=== PATIENT | male | born 1955 | race Caucasian/White ===

== ENCOUNTER → 2017-12-09 14:40 | Outpatient (CLI) | payer MEDICAID, SELFPAY ==
[2017-12-08 16:23] LABS: Albumin, Serum 3.9 g/dL (3.2-5.0); BUN 11 mg/dL (7-18); BUN/Creat Ratio 10.5 RATIO (10-20); Calcium,Total 8.8 mg/dL (8.5-10.1); Chloride 106 mmol/L (98-107); Creatinine, Serum 1.05 mg/dL (0.70-1.30); EST Glomerular Filtration Rate 76 mL/min (>60); Est Glom Filt Rate - Afr Amer 92 mL/min (>60); Glucose 91 mg/dL (74-106); Potassium 3.9 mmol/L (3.5-5.1); Sodium Level 138 mmol/L (136-145)
[2017-12-08 16:32] LABS: Protein, Urine (Random) < 6.0 mg/dL (<11.9)
== END ==
PROVIDERS: Family Provider Nurse Practitioner Family; PCP Nurse Practitioner Family; Visit Provider Internal Medicine Nephrology
DX: I12.9 Hypertensive chronic kidney disease with stage 1 through stage 4 chronic kidney disease, or unspecified chronic kidney disease (principal); N18.2 Chronic kidney disease, stage 2 (mild)
CPT/HCPCS: 36415; 80069; 82570; 84156

== ENCOUNTER → 2018-07-19 08:12 | Outpatient (CLI) | payer MEDICAID, SELFPAY ==
[2018-07-19 09:25] LABS: Absolute Lymphocyte Count 1.22 X10^3/ul (0.83-4.51); Absolute Neutrophil Count 5.3 X10^3/uL (2.0-7.7); Basophil# 0.06 X10^3/uL; Basophil% 0.8 % (0-1); Eosinophil# 0.15 X10^3/uL; Eosinophils% 2.1 % (0-5); Hematocrit 45.4 % (40-54); Hemoglobin 15.4 g/dl (13.0-16.5); Lymphocyte # 1.22 X10^3/ul (4.0); Lymphocyte % 16.7 % (19-41); Mean Corp Hgb Conc 33.9 g/gl (32-36); Mean Corpuscular Hgb 28.6 pg (27.0-32.0); Mean Corpuscular Volume 84.4 fL (80-94); Monocyte# 0.56 X10^3/uL; Monocyte% 7.7 % (0-10); Neutrophil # 5.27 X10^3/uL (2.7-7.7); Neutrophil % 72.3 % (47-70); Platelet Count 232 K/mm3 (150-450); RBC Distribution Width CV 13.3 % (11.6-14.6); Red Blood Count 5.38 M/mm3 (4.6-6.2); White Blood Count 7.3 K/mm3 (4.4-11.0)
[2018-07-19 09:27] LABS: POSITIVE COUNT NO; POSITIVE DIFFERENTIAL NO; POSITIVE MORPHOLOGY NO
[2018-07-19 09:46] LABS: AST(SGOT) 16 U/L (15-37); Alanine Aminotransfer ALT/SGPT 23 U/L (16-61); Albumin, Serum 3.8 g/dL (3.2-5.0); Alkaline Phosphatase 93 U/L (45-117); Anion Gap 11 (5-15); BUN 18 mg/dL (7-18); BUN/Creat Ratio 15.7 RATIO (10-20); Calcium,Total 8.9 mg/dL (8.5-10.1); Chloride 103 mmol/L (98-107); Cholesterol 141 mg/dL (200); Creatinine, Serum 1.15 mg/dL (0.70-1.30); EST Glomerular Filtration Rate 69 mL/min (>60); Est Glom Filt Rate - Afr Amer 83 mL/min (>60); Globulin 3.8 g/dL (2.2-4.2); Glucose 113 mg/dL (74-106); High Density Lipoprotein 30 mg/dL; PSA,Total - Annual Screen 1.38 ng/mL (0.00-4.00); Potassium 3.9 mmol/L (3.5-5.1); Protein, Total 7.6 g/dL (6.4-8.2); Sodium Level 139 mmol/L (136-145); Triglycerides 277 mg/dL; Very Low Density Lipoprotein 55 mg/dL (5-40)
[2018-07-19 09:48] LABS: Hemoglobin A1c 6.2 % (4.2-6.3)
--- OUTSIDE RECORDS SUMMARY | 2018-09-04 06:12 | XMS RPT_ITS ---
:1955 Author Organization OHIP Care Team Providers Name Role Phone Anne Kimball QUALITY SPECIALIST-C Attending Unavailable ANNE KIMBALL Primary Care Unavailable Anne Kimball QUALITY SPECIALIST-C Attending Unavailable Anne Kimball QUALITY SPECIALIST-C Referring Unavailable Anne Kimball QUALITY SPECIALIST-C Primary Care Unavailable Kalyn Cuevas Attending Unavailable ANNE KIMBALL Primary Care Unavailable PROBLEMS PROBLEMS DATE TYPE CONDITION / CODE ATTENDING STATUS SOURCE 07/19/2018 Unknown R73.01 - Impaired Ramsey, Active [place] fasting glucose / Anne Simmons QUALITY SPECIALIST-C [facility] R73.01(ICD-10) Hospital Repository 07/19/2018 Unknown I10 - Essential Ramsey, Active [place] (primary) Anne Simmons QUALITY SPECIALIST-Mikey [facility] hypertension / Hospital I10(ICD-10) Repository 07/19/2018 Unknown E78.5 - Jigar, Active [place] Hyperlipidemia, Anne Simmons QUALITY SPECIALIST-C [facility] unspecified / Hospital E78.5(ICD-10) Repository 07/19/2018 Unknown Z12.5 - Encounter Ramsey Active [place] for screening for Anne Simmons QUALITY SPECIALIST-Mikey [facility] malignant neoplasm Hospital of prostate / Repository Z12.5(ICD-10) 12/09/2017 Unknown N18.2 - Chronic Kalyn Cuevas Active [place] kidney disease, [facility] stage 2 (mild) / Hospital N18.2(ICD-10) Repository PROCEDURES PROCEDURES No Procedure Records FoundRESULTS RESULTS CBC W/DIFF, AUTOMATED Collected: 07/19/2018 Status: F Source: RODRIGO 8:19 AM [facility] REPOSITORY TYPE CODE TESTS RESULT OUT OF RANGE REFERENCE UNITS LAB L100.1000 4.4-11.0 K/mm3 Normal WBC 7.3 LAB L100.1200 4.6-6.2 M/mm3 Normal RBC 5.38 LAB L100.1300 13.0-16.5 g/dl Normal HGB 15.4 LAB L100.1400 40-54 % Normal HCT 45.4 LAB L100.1500 80-94 fL Normal MCV 84.4 LAB L100.1600 27.0-32.0 pg Normal MCH 28.6 LAB L100.1700 32-36 g/gl Normal MCHC 33.9 LAB L100.1810 11.6-14.6 % Normal RDW CV 13.3 LAB L100.1820 35.1-43.9 fl Normal RDW SD 41.0 LAB L100.1900 150-450 K/mm3 Normal PLT 232 LAB L100.2000 6.2-12.0 fl Normal MPV 10.0 LAB L100.2100 47-70 % High NEUT% 72.3 LAB L100.2200 19-41 % Low LY% 16.7 LAB L100.2300 0-10 % Normal MONO% 7.7 LAB L100.2400 0-5 % Normal EO% 2.1 LAB L100.2500 0-1 % Normal BASO% 0.8 LAB L100.2550 0.0-0.9 % Normal IM GRAN % 0.400 Result Comment: IG% - Immature Granulocytes (promyelocytes, myelocytes and metamyelocytes) > 1% indicates that a LEFT SHIFT is Present. LAB L100.2620 2.0-7.7 X10 3/uL Normal Absolute Neut 5.3 LAB L100.2720 0.83-4.51 X10 3/ul Normal Absolute Lymph 1.22 Performed By: #### L100.0100 #### [facility] [address] [place], [address] COMPREHENSIVE METABOLIC Collected: 07/19/2018 Status: F Source: RODRIGO CORDOVA 8:19 AM [facility] REPOSITORY TYPE CODE TESTS RESULT OUT OF RANGE REFERENCE UNITS LAB L501.0100 74-106 mg/dL High GLU 113 Result Comment: Fasting Glucose result from 100 to 125 mg/dL suggests IMPAIRED HOMEOSTASIS per A.D.A. criteria. Please note revised GLUCOSE reference range effective 2017. LAB L501.1000 7-18 mg/dL Normal BUN 18 LAB L501.1100 0.70-1.30 mg/dL Normal CREAT,SERUM 1.15 Result Comment: The validity of the calculated GFR AND GFRAA in patients over 70 years has not been determined. Clinical correlation is essential. LAB L501.1110 >60 mL/min Normal EST GFR 69 Result Comment: Non- GFR Calc LAB L501.1115 >60 mL/min Normal EST GFR - AA 83 Result Comment: GFR Calc LAB L501.1300 10-20 RATIO Normal BUN/CRE 15.7 LAB L501.1500 6.4-8.2 g/dL T Normal PROT 7.6 LAB L501.1800 3.2-5.0 g/dL Normal ALB 3.8 LAB L501.1950 2.2-4.2 g/dL Normal GLOB 3.8 LAB L501.2000 0.9-2.4 RATIO Normal A/G 1.0 LAB L501.2200 8.5-10.1 mg/dL CA Normal 8.9 LAB L501.4100 15-37 U/L Normal AST 16 LAB L501.4305 45-117 U/L Normal ALK P 93 LAB L501.4405 16-61 U/L Normal ALT 23 LAB L501.4600 0.20-1.00 mg/dL T Normal BILI 0.40 LAB L501.5300 136-145 mmol/L NA Normal 139 LAB L501.5600 3.5-5.1 mmol/L K Normal 3.9 LAB L501.5900 98-107 mmol/L CL Normal 103 LAB L501.6100 21.0-32.0 mmol/L Normal CO2 25.0 LAB L501.6200 5-15 Normal GAP 11 Performed By: #### L500.4050, L500.4100, L501.9910 #### [facility] [address] [place], [address] LIPID PROFILE Collected: 07/19/2018 Status: F Source: RODRIGO 8:19 AM [facility] REPOSITORY TYPE CODE TESTS RESULT OUT OF RANGE REFERENCE UNITS LAB L501.4900 200 mg/dL Normal CHOL 141 Result Comment: <200 mg/dL Desirable 200-240 mg/dL Borderline >240 mg/dL High Risk LAB L501.5000 mg/dL High TRIG 277 Result Comment: The drugs N-Acetylcysteine and Metamizole may falsely depress this assay. Serum Triglycerides Reference Interval Normal <150 mg/dL Borderline high 150 - 199 mg/dL High 200 - 499 mg/dL Very High > or = 500 mg/dL LAB L501.6400 mg/dL Low HDL 30 Result Comment: The drugs N-Acetylcysteine and Metamizole may falsely depress this assay. Reference Range HDL <40 mg/dL Low HDL Cholesterol HDL >or= 60 mg/dL High HDL Cholesterol LAB L501.6500 0-130 mg/dL Normal LDL 56 LAB L501.6600 5-40 mg/dL High VLDL 55 Performed By: #### L500.4050, L500.4100, L501.9910 #### [facility] [address] [place], [place], [address] PSA,TOTAL - ANNUAL Collected: 07/19/2018 Status: F Source: [place] SCREEN 8:19 AM [facility] REPOSITORY TYPE CODE TESTS RESULT OUT OF RANGE REFERENCE UNITS LAB L501.9910 0.00-4.00 ng/mL Normal PSA,TOT 1.38 SCREEN Result Comment: This test was performed using the TPSA assay method for the [employer] chemistry system. Values obtained with different assay methods cannot be used interchangably. When changing PSA assays in the course of monitoring a patient, additional sequential testing should be carried out to confirm baseline values. Performed By: #### L500.4050, L500.4100, L501.9910 #### [facility] [address] [place], [place], [address] HEMOGLOBIN A1C Collected: 07/19/2018 Status: F Source: RODRIGO 8:19 AM [facility] REPOSITORY TYPE CODE TESTS RESULT OUT OF RANGE REFERENCE UNITS LAB L501.9985 4.2-6.3 % Normal HGB A1C 6.2 Performed By: #### L501.9985 #### [facility] [address] [place], [place], [id number] RENAL PROFILE Collected: 12/08/2017 Status: F Source: RODRIGO 1:57 PM [facility] REPOSITORY TYPE CODE TESTS RESULT OUT OF RANGE REFERENCE UNITS LAB L501.0100 74-106 mg/dL Normal GLU 91 Result Comment: Please note revised GLUCOSE reference range effective 2017. LAB L501.1000 7-18 mg/dL Normal BUN 11 LAB L501.1100 0.70-1.30 mg/dL Normal CREAT,SERUM 1.05 Result Comment: The validity of the calculated GFR AND GFRAA in patients over 70 years has not been determined. Clinical correlation is essential. LAB L501.1110 >60 mL/min Normal EST GFR 76 Result Comment: Non- GFR Calc LAB L501.1115 >60 mL/min Normal EST GFR - AA 92 Result Comment: GFR Calc LAB L501.1300 10-20 RATIO Normal BUN/CRE 10.5 LAB L501.1800 3.2-5.0 g/dL Normal ALB 3.9 LAB L501.2200 8.5-10.1 mg/dL CA Normal 8.8 LAB L501.2300 2.5-4.9 mg/dL Normal PHOS 3.0 LAB L501.5300 136-145 mmol/L NA Normal 138 LAB L501.5600 3.5-5.1 mmol/L K Normal 3.9 LAB L501.5900 98-107 mmol/L CL Normal 106 LAB L501.6100 21.0-32.0 mmol/L Normal CO2 23.0 Performed By: #### L500.3600 #### [facility] [address] [place], [address] PROTEIN+CREATININE Collected: Status: F Source: RODRIGO WAGNER,URINE 12/08/2017 1:57 PM [facility] REPOSITORY TYPE CODE TESTS RESULT OUT OF RANGE REFERENCE UNITS LAB L501.1200 NO RANGE EST. mg/dL 14.10 Normal UR CREAT LAB L501.1930 <11.9 mg/dL < 6.0 Normal PROTEIN,UR. RAN. LAB L501.1940 0-200 mg/g CRE Test Normal not performed PROT:CRE RATIO Performed By: #### L501.0900 #### [facility] [address] [place], [address] ALLERGIES ALLERGIES No Allergies Records FoundENCOUNTERS ENCOUNTERS ADMIT/DISCHARGE ACCOUNT ADMITTING ENCOUNTER LOCATION SOURCE NUMBER CLASS 07/19/2018 [id number] Ambulatory [address] ing:LAB.FUTUR Repository E 12/09/2017 [id number] Ambulatory [facility] ing:LAB.FUTUR Repository E 10/07/2017 [id number] Ambulatory [address] ing:LAB.FUTUR Repository E PAYERS PAYERS ENCOUNTER GUARANTOR PAYER SUBSCRIBER SOURCE 07/19/2018 ANNE C Primary ANNE Leal [id number] N Insurance:[facility] [id number] PLANPolicy Number: Repository [id number]: 330 [id number] [id number] () Date:[id number] [address] [place] [address] [id number]: 07/19/2018 Secondary NOT GIVENUNK [place] Insurance:SELF PAY [facility] Number: Effective Repository Date:2018-01-04 12/09/2017 Anne Primary Anne Leal [id number] Insurance:[facility] [id number] PLANPolicy Number: Repository [id number]: 330 [id number] [id number] () Date:[id number] [address] [place] [address] 56790MG: 12/09/2017 Secondary NOT GIVENUNK [place] Insurance:SELF PAY [facility] Number: Effective Repository Date:2017-12-08 10/07/2017 Anne Primary Anne Leal [id number] Insurance:[facility] [id number] PLANPolicy Number: Repository [id number]: [phone] [id number] [phone] () Date:[id number] [address] [id number]: 10/07/2017 Secondary NOT GIVENUNK [place] Insurance:SELF PAY [facility] Number: Effective Repository Date:2017-10-07
== END ==
PROVIDERS: Family Provider Nurse Practitioner Family; PCP Nurse Practitioner Family; Referring Provider Nurse Practitioner Family; Visit Provider Nurse Practitioner Family
DX: I10 Essential (primary) hypertension (principal); R73.01 Impaired fasting glucose; E78.5 Hyperlipidemia, unspecified; Z12.5 Encounter for screening for malignant neoplasm of prostate
CPT/HCPCS: 36415; 80053; 80061; 83036; 84153; 85025; G0103

== ENCOUNTER → 2018-12-14 14:04 | Outpatient (CLI) | payer MEDICAID, SELFPAY ==
[2018-12-14 17:29] LABS: BUN 15 mg/dL (7-18); BUN/Creat Ratio 12.9 RATIO (10-20); Calcium,Total 8.5 mg/dL (8.5-10.1); Chloride 107 mmol/L (98-107); Creatinine, Serum 1.16 mg/dL (0.70-1.30); EST Glomerular Filtration Rate 68 mL/min (>60); Est Glom Filt Rate - Afr Amer 82 mL/min (>60); Glucose 95 mg/dL (74-106); Potassium 3.9 mmol/L (3.5-5.1); Sodium Level 138 mmol/L (136-145)
== END ==
PROVIDERS: Family Provider Nurse Practitioner Family; PCP Nurse Practitioner Family; Visit Provider Internal Medicine Nephrology
DX: N18.2 Chronic kidney disease, stage 2 (mild) (principal)
CPT/HCPCS: 36415; 80069

== ENCOUNTER → 2018-12-15 16:28 | Outpatient (CLI) | payer MEDICAID, SELFPAY | PROVIDERS: Family Provider Nurse Practitioner Family; PCP Nurse Practitioner Family; Visit Provider Internal Medicine Nephrology | DX: R69 Illness, unspecified (principal) ==

== ENCOUNTER → 2019-01-17 | Outpatient (CLI) | payer MEDICAID, SELFPAY ==
[2019-01-17 10:06] LABS: Absolute Lymphocyte Count 1.46 X10^3/ul (0.83-4.51); Absolute Neutrophil Count 4.5 X10^3/uL (2.0-7.7); Basophil# 0.05 X10^3/uL; Basophil% 0.7 % (0-1); Eosinophil# 0.25 X10^3/uL; Eosinophils% 3.7 % (0-5); Hematocrit 44.1 % (40-54); Hemoglobin 15.3 g/dl (13.0-16.5); Lymphocyte # 1.46 X10^3/ul (4.0); Lymphocyte % 21.4 % (19-41); Mean Corp Hgb Conc 34.7 g/gl (32-36); Mean Corpuscular Hgb 28.4 pg (27.0-32.0); Mean Corpuscular Volume 81.8 fL (80-94); Mean Platelet Vol. 10.5 fl (6.2-12.0); Monocyte# 0.51 X10^3/uL; Monocyte% 7.5 % (0-10); Neutrophil # 4.52 X10^3/uL (2.7-7.7); Neutrophil % 66.4 % (47-70); Platelet Count 233 K/mm3 (150-450); RBC Distribution Width CV 13.6 % (11.6-14.6); RBC Distribution Width SD 40.5 fl (35.1-43.9); Red Blood Count 5.39 M/mm3 (4.6-6.2); White Blood Count 6.8 K/mm3 (4.4-11.0)
[2019-01-17 10:08] LABS: POSITIVE COUNT NO; POSITIVE DIFFERENTIAL NO; POSITIVE MORPHOLOGY NO
[2019-01-17 10:49] LABS: AST(SGOT) 18 U/L (15-37); Alanine Aminotransfer ALT/SGPT 23 U/L (16-61); Albumin, Serum 3.6 g/dL (3.2-5.0); Alkaline Phosphatase 109 U/L (45-117); Anion Gap 4 (5-15); BUN 12 mg/dL (7-18); BUN/Creat Ratio 10.3 RATIO (10-20); Calcium,Total 8.6 mg/dL (8.5-10.1); Chloride 104 mmol/L (98-107); Cholesterol 143 mg/dL (200); Creatinine, Serum 1.16 mg/dL (0.70-1.30); EST Glomerular Filtration Rate 68 mL/min (>60); Est Glom Filt Rate - Afr Amer 82 mL/min (>60); Globulin 3.7 g/dL (2.2-4.2); Glucose 122 mg/dL (74-106); High Density Lipoprotein 32 mg/dL; Potassium 3.8 mmol/L (3.5-5.1); Protein, Total 7.3 g/dL (6.4-8.2); Sodium Level 136 mmol/L (136-145); Triglycerides 322 mg/dL; Very Low Density Lipoprotein 64 mg/dL (5-40)
== END | disposition home or self-care (01) ==
LOC: LAB 09:16
PROVIDERS: Family Provider Nurse Practitioner Family; PCP Nurse Practitioner Family; Referring Provider Nurse Practitioner Family; Visit Provider Nurse Practitioner Family
DX: I10 Essential (primary) hypertension (principal); E78.5 Hyperlipidemia, unspecified
CPT/HCPCS: 36415; 80053; 80061; 85025

== ENCOUNTER → 2019-07-18 10:53 | Outpatient (CLI) | payer MEDICAID, SELFPAY ==
[2019-07-18 11:26] LABS: Absolute Neutrophil Count 4.8 X10^3/uL (2.0-7.7); Basophil# 0.09 X10^3/uL; Basophil% 1.2 % (0-1); Eosinophil# 0.22 X10^3/uL; Hematocrit 44.6 % (40-54); Hemoglobin 15.1 g/dL (13.0-16.5); Lymphocyte % 21.5 % (19-41); Mean Corp Hgb Conc 33.9 g/dL (32-36); Mean Corpuscular Hgb 29.2 pg (27.0-32.0); Mean Corpuscular Volume 86.1 fL (80-94); Mean Platelet Vol. 9.3 fl (6.2-12.0); Monocyte# 0.63 X10^3/uL; Monocyte% 8.5 % (0-10); NRBC Flagged by Analyzer 0 % (0-5); Neutrophil # 4.84 X10^3/uL (2.7-7.7); Neutrophil % 65.1 % (47-70); Platelet Count 210 K/mm3 (150-450); RBC Distribution Width CV 13.2 % (11.6-14.6); RBC Distribution Width SD 40.8 fl (35.1-43.9); Red Blood Count 5.18 M/mm3 (4.6-6.2); White Blood Count 7.4 K/mm3 (4.4-11.0)
[2019-07-18 11:52] LABS: AST(SGOT) 20 U/L (15-37); Alanine Aminotransfer ALT/SGPT 27 U/L (16-61); Albumin, Serum 3.8 g/dL (3.2-5.0); Alkaline Phosphatase 101 U/L (45-117); Anion Gap 5 (5-15); BUN 15 mg/dL (7-18); BUN/Creat Ratio 11.3 RATIO (10-20); Calcium,Total 8.6 mg/dL (8.5-10.1); Chloride 103 mmol/L (98-107); Cholesterol 143 mg/dL (200); Creatinine, Serum 1.33 mg/dL (0.70-1.30); EST Glomerular Filtration Rate 58 mL/min (>60); Est Glom Filt Rate - Afr Amer 70 mL/min (>60); Globulin 3.9 g/dL (2.2-4.2); Glucose 152 mg/dL (74-106); High Density Lipoprotein 42 mg/dL; Protein, Total 7.7 g/dL (6.4-8.2); Sodium Level 137 mmol/L (136-145); Triglycerides 155 mg/dL; Very Low Density Lipoprotein 31 mg/dL (5-40)
== END ==
PROVIDERS: Family Provider Nurse Practitioner Family; PCP Nurse Practitioner Family; Referring Provider Nurse Practitioner Family; Visit Provider Nurse Practitioner Family
DX: E78.5 Hyperlipidemia, unspecified (principal); R73.01 Impaired fasting glucose; I10 Essential (primary) hypertension
CPT/HCPCS: 36415; 80053; 80061; 83036; 85025

== ENCOUNTER → 2019-12-19 | Outpatient (CLI) | payer MEDICAID, SELFPAY ==
[2019-12-19 12:47] LABS: Albumin, Serum 3.7 g/dL (3.2-5.0); BUN 16 mg/dL (7-18); BUN/Creat Ratio 13.2 RATIO (10-20); Calcium,Total 8.9 mg/dL (8.5-10.1); Chloride 103 mmol/L (98-107); Creatinine, Serum 1.21 mg/dL (0.70-1.30); EST Glomerular Filtration Rate 64 mL/min (>60); Est Glom Filt Rate - Afr Amer 78 mL/min (>60); Glucose 143 mg/dL (74-106); Phosphorus 2.9 mg/dL (2.5-4.9); Potassium 4.2 mmol/L (3.5-5.1); Sodium Level 139 mmol/L (136-145)
== END | disposition home or self-care (01) ==
LOC: POLAB3 11:24
PROVIDERS: Family Provider Nurse Practitioner Family; PCP Nurse Practitioner Family; Visit Provider Internal Medicine Nephrology
DX: N18.2 Chronic kidney disease, stage 2 (mild) (principal)
CPT/HCPCS: 36415; 80069

== ENCOUNTER → 2020-01-19 10:04 | Outpatient (CLI) | payer MEDICAID, SELFPAY ==
[2020-01-19 10:44] LABS: Hematocrit 44.1 % (40-54); Hemoglobin 14.4 g/dL (13.0-16.5); Mean Corp Hgb Conc 32.7 g/dL (32-36); Mean Corpuscular Hgb 28.2 pg (27.0-32.0); Mean Corpuscular Volume 86.5 fL (80-94); Mean Platelet Vol. 9.6 fl (6.2-12.0); Platelet Count 200 K/mm3 (150-450); RBC Distribution Width CV 13.5 % (11.6-14.6); RBC Distribution Width SD 42.4 fl (35.1-43.9); White Blood Count 7.1 K/mm3 (4.4-11.0)
[2020-01-19 11:12] LABS: ALB/GLOB Ratio 0.9 RATIO (0.9-2.4); AST(SGOT) 20 U/L (15-37); Alanine Aminotransfer ALT/SGPT 28 U/L (16-61); Albumin, Serum 3.6 g/dL (3.2-5.0); Alkaline Phosphatase 119 U/L (45-117); Anion Gap 7 (5-15); BUN 16 mg/dL (7-18); Calcium,Total 8.5 mg/dL (8.5-10.1); Chloride 102 mmol/L (98-107); Cholesterol 138 mg/dL (200); Creatinine, Serum 1.14 mg/dL (0.70-1.30); EST Glomerular Filtration Rate 69 mL/min (>60); Est Glom Filt Rate - Afr Amer 83 mL/min (>60); Globulin 3.9 g/dL (2.2-4.2); Glucose 122 mg/dL (74-106); High Density Lipoprotein 32 mg/dL; PSA,Total- Diagnostic 1.27 ng/mL (0.0-4.0); Potassium 3.8 mmol/L (3.5-5.1); Protein, Total 7.5 g/dL (6.4-8.2); Sodium Level 138 mmol/L (136-145); Triglycerides 221 mg/dL; Very Low Density Lipoprotein 44 mg/dL (5-40)
== END ==
PROVIDERS: PCP Nurse Practitioner Family; Referring Provider Nurse Practitioner Family; Visit Provider Nurse Practitioner Family
DX: I10 Essential (primary) hypertension (principal); N40.0 Benign prostatic hyperplasia without lower urinary tract symptoms; E78.5 Hyperlipidemia, unspecified
CPT/HCPCS: 36415; 80053; 80061; 84153; 85027

== ENCOUNTER → 2020-03-25 | Outpatient (CLI) | payer MEDICAID, SELFPAY | END | disposition home or self-care (01) | LOC: MTDU 17:03 | PROVIDERS: PCP Nurse Practitioner Family; Referring Provider Obstetrics & Gynecology; Visit Provider Obstetrics & Gynecology | DX: Z11.59 Encounter for screening for other viral diseases (principal) | CPT/HCPCS: 87635; 94799; U0003 ==

== ENCOUNTER → 2020-07-18 10:32 | Outpatient (CLI) | payer MEDICAID, SELFPAY ==
[2020-07-18 11:36] LABS: Hematocrit 44.2 % (40-54); Hemoglobin 14.5 g/dL (13.0-16.5); Mean Corp Hgb Conc 32.8 g/dL (32-36); Mean Corpuscular Hgb 27.5 pg (27.0-32.0); Mean Corpuscular Volume 83.9 fL (80-94); Mean Platelet Vol. 9.5 fl (6.2-12.0); Platelet Count 201 K/mm3 (150-450); RBC Distribution Width CV 12.9 % (11.6-14.6); RBC Distribution Width SD 39.7 fl (35.1-43.9); Red Blood Count 5.27 M/mm3 (4.6-6.2); White Blood Count 7.8 K/mm3 (4.4-11.0)
[2020-07-18 11:58] LABS: Hemoglobin A1c 6.1 % (3.8-5.6)
[2020-07-18 12:05] LABS: ALB/GLOB Ratio 0.9 RATIO (0.9-2.4); AST(SGOT) 21 U/L (15-37); Alanine Aminotransfer ALT/SGPT 32 U/L (16-61); Albumin, Serum 3.6 g/dL (3.2-5.0); Alkaline Phosphatase 118 U/L (45-117); Anion Gap 8 (5-15); BUN 15 mg/dL (7-18); BUN/Creat Ratio 12.8 RATIO (10-20); Calcium,Total 7.3 mg/dL (8.5-10.1); Chloride 99 mmol/L (98-107); Cholesterol 117 mg/dL (200); Creatinine, Serum 1.17 mg/dL (0.70-1.30); EST Glomerular Filtration Rate 67 mL/min (>60); Est Glom Filt Rate - Afr Amer 81 mL/min (>60); Glucose 111 mg/dL (74-106); High Density Lipoprotein 32 mg/dL; Potassium 3.4 mmol/L (3.5-5.1); Protein, Total 7.6 g/dL (6.4-8.2); Sodium Level 137 mmol/L (136-145); Triglycerides 151 mg/dL; Very Low Density Lipoprotein 30 mg/dL (5-40)
== END ==
PROVIDERS: PCP Nurse Practitioner Family; Referring Provider Nurse Practitioner Family; Visit Provider Nurse Practitioner Family
DX: I10 Essential (primary) hypertension (principal); E78.5 Hyperlipidemia, unspecified; I25.10 Atherosclerotic heart disease of native coronary artery without angina pectoris; N28.9 Disorder of kidney and ureter, unspecified; R73.01 Impaired fasting glucose
CPT/HCPCS: 36415; 80053; 80061; 83036; 85027

== ENCOUNTER → 2021-01-18 08:27 | Outpatient (CLI) | payer MEDICAID, SELFPAY ==
[2021-01-18 08:45] LABS: Hematocrit 44.8 % (40-54); Mean Corp Hgb Conc 33.5 g/dL (32-36); Mean Corpuscular Hgb 28.5 pg (27.0-32.0); Mean Corpuscular Volume 85.2 fL (80-94); Mean Platelet Vol. 9.2 fl (6.2-12.0); Platelet Count 226 K/mm3 (150-450); RBC Distribution Width CV 13.1 % (11.6-14.6); RBC Distribution Width SD 40.6 fl (35.1-43.9); Red Blood Count 5.26 M/mm3 (4.6-6.2); White Blood Count 7.8 K/mm3 (4.4-11.0)
[2021-01-18 09:45] LABS: AST(SGOT) 26 U/L (15-37); Alanine Aminotransfer ALT/SGPT 33 U/L (16-61); Albumin, Serum 3.7 g/dL (3.2-5.0); Alkaline Phosphatase 115 U/L (45-117); Anion Gap 6 (5-15); BUN 15 mg/dL (7-18); BUN/Creat Ratio 13.2 RATIO (10-20); Calcium,Total 7.9 mg/dL (8.5-10.1); Chloride 103 mmol/L (98-107); Cholesterol 142 mg/dL (200); Creatinine, Serum 1.14 mg/dL (0.70-1.30); EST Glomerular Filtration Rate 69 mL/min (>60); Est Glom Filt Rate - Afr Amer 83 mL/min (>60); Globulin 3.8 g/dL (2.2-4.2); Glucose 123 mg/dL (74-106); High Density Lipoprotein 25 mg/dL; PSA,Total - Annual Screen 1.54 ng/mL (0.00-4.00); Potassium 3.8 mmol/L (3.5-5.1); Protein, Total 7.5 g/dL (6.4-8.2); Sodium Level 138 mmol/L (136-145); Triglycerides 474 mg/dL
[2021-01-18 10:18] LABS: Hemoglobin A1c 5.9 % (3.8-5.6)
== END ==
PROVIDERS: PCP Nurse Practitioner Family; Referring Provider Nurse Practitioner Family; Visit Provider Nurse Practitioner Family
DX: E11.9 Type 2 diabetes mellitus without complications (principal); I10 Essential (primary) hypertension; E78.5 Hyperlipidemia, unspecified; Z12.5 Encounter for screening for malignant neoplasm of prostate
CPT/HCPCS: 36415; 80053; 80061; 83036; 84153; 85027; G0103

== ENCOUNTER → 2021-07-22 08:04 | Outpatient (CLI) | payer MEDICAID, SELFPAY ==
[2021-07-22 09:18] LABS: Hematocrit 44.7 % (40-54); Hemoglobin 14.8 g/dL (13.0-16.5); Mean Corp Hgb Conc 33.1 g/dL (32-36); Mean Corpuscular Hgb 27.8 pg (27.0-32.0); Mean Platelet Vol. 9.3 fl (6.2-12.0); Platelet Count 235 K/mm3 (150-450); RBC Distribution Width CV 13.1 % (11.6-14.6); RBC Distribution Width SD 39.4 fl (35.1-43.9); Red Blood Count 5.32 M/mm3 (4.6-6.2); White Blood Count 8.8 K/mm3 (4.4-11.0)
[2021-07-22 09:52] LABS: ALB/GLOB Ratio 0.9 RATIO (0.9-2.4); AST(SGOT) 24 U/L (15-37); Alanine Aminotransfer ALT/SGPT 37 U/L (16-61); Albumin, Serum 3.5 g/dL (3.2-5.0); Alkaline Phosphatase 109 U/L (45-117); Anion Gap 9 (5-15); BUN 12 mg/dL (7-18); BUN/Creat Ratio 11.8 RATIO (10-20); Calcium,Total 8.6 mg/dL (8.5-10.1); Chloride 102 mmol/L (98-107); Cholesterol 115 mg/dL (200); Creatinine, Serum 1.02 mg/dL (0.70-1.30); EST Glomerular Filtration Rate 78 mL/min (>60); Est Glom Filt Rate - Afr Amer 94 mL/min (>60); Glucose 133 mg/dL (74-106); High Density Lipoprotein 32 mg/dL; Protein, Total 7.5 g/dL (6.4-8.2); Sodium Level 138 mmol/L (136-145); Triglycerides 207 mg/dL; Very Low Density Lipoprotein 41 mg/dL (5-40)
[2021-07-22 10:30] LABS: Hemoglobin A1c 6.2 % (3.8-5.6)
== END ==
PROVIDERS: PCP Nurse Practitioner Family; Visit Provider Nurse Practitioner Family
DX: E11.9 Type 2 diabetes mellitus without complications (principal); E78.5 Hyperlipidemia, unspecified; I10 Essential (primary) hypertension; N28.9 Disorder of kidney and ureter, unspecified; N40.0 Benign prostatic hyperplasia without lower urinary tract symptoms
CPT/HCPCS: 36415; 80053; 80061; 83036; 85027

== ENCOUNTER → 2022-02-20 | Outpatient (CLI) | payer MEDICARE, MEDICAID, SELFPAY ==
[2022-02-20 12:36] LABS: Hematocrit 43.4 % (40-54); Hemoglobin 14.7 g/dL (13.0-16.5); Mean Corp Hgb Conc 33.9 g/dL (32-36); Mean Corpuscular Hgb 28.9 pg (27.0-32.0); Mean Corpuscular Volume 85.3 fL (80-94); Mean Platelet Vol. 9.8 fl (6.2-12.0); Platelet Count 219 K/mm3 (150-450); RBC Distribution Width CV 13.2 % (11.6-14.6); RBC Distribution Width SD 40.8 fl (35.1-43.9); Red Blood Count 5.09 M/mm3 (4.6-6.2); White Blood Count 7.6 K/mm3 (4.4-11.0)
[2022-02-20 13:19] LABS: Hemoglobin A1c 5.9 % (3.8-5.6)
[2022-02-20 13:26] LABS: ALB/GLOB Ratio 1.1 RATIO (0.9-2.4); AST(SGOT) 22 U/L (15-37); Alanine Aminotransfer ALT/SGPT 25 U/L (16-61); Albumin, Serum 3.7 g/dL (3.2-5.0); Alkaline Phosphatase 92 U/L (45-117); Anion Gap 7 (5-15); BUN 18 mg/dL (7-18); BUN/Creat Ratio 16.5 RATIO (10-20); Calcium,Total 8.8 mg/dL (8.5-10.1); Chloride 104 mmol/L (98-107); Cholesterol 119 mg/dL (200); Creatinine, Serum 1.09 mg/dL (0.70-1.30); EST Glomerular Filtration Rate 72 mL/min (>60); Est Glom Filt Rate - Afr Amer 87 mL/min (>60); Globulin 3.5 g/dL (2.2-4.2); Glucose 115 mg/dL (74-106); High Density Lipoprotein 36 mg/dL; PSA,Total- Diagnostic 1.43 ng/mL (0.0-4.0); Protein, Total 7.2 g/dL (6.4-8.2); Sodium Level 137 mmol/L (136-145); Triglycerides 183 mg/dL; Very Low Density Lipoprotein 37 mg/dL (5-40)
== END | disposition home or self-care (01) ==
LOC: LAB 11:41
PROVIDERS: PCP Nurse Practitioner Family; Visit Provider Nurse Practitioner Family
DX: I25.10 Atherosclerotic heart disease of native coronary artery without angina pectoris (principal); E11.9 Type 2 diabetes mellitus without complications; N40.0 Benign prostatic hyperplasia without lower urinary tract symptoms; E78.5 Hyperlipidemia, unspecified; N28.9 Disorder of kidney and ureter, unspecified
CPT/HCPCS: 36415; 80053; 80061; 83036; 84153; 85027

== ENCOUNTER 2022-06-01 06:06 | Inpatient (IN) | payer MEDICARE, MEDICAID, SELFPAY ==
[2022-06-01] VITALS (18 sets, daily range): BP systolic 129–229; BP diastolic 69–104; PULSE 57–108; RESP 12–30; TEMP 36.3–36.9; O2SAT 88–97; BMI 33.8; BMI 33.7
--- NOTE | 2022-06-01 06:11 | EKG12_ITS ---
Test Reason : SOB Blood Pressure : / mmHG Vent. Rate : 087 BPM Atrial Rate : 000 BPM P-R Int : 000 ms QRS Dur : 108 ms QT Int : 400 ms P-R-T Axes : 000 020 268 degrees QTc Int : 481 ms Atrial fibrillation Inferior infarct , age undetermined Abnormal ECG Confirmed by BRANDY MENDEZ, LEIDY ([id number]), market editor JOVANNY LEE ([id number]) on 06/03/2022 8:30:48 AM Referred By: Confirmed By:LEIDY NAVA MD
--- NOTE | 2022-06-01 06:12 | EDS_ITS ---
HPI History of Present Illness Chief Complaint: Shortness of Breath Informant: patient Onset/Context/Timing Onset: Hours (3) Context: sudden, onset, activity on onset and sleep Timing: Continuous Quality: Positive for - (Short of breath) Current Severity: Moderate Worsened by: Lying flat Relieved by: Oxygen (Given by EMS, not on home oxygen) Associated Symptoms Negative for cough Chest Pain: Positive for None Narrative Narrative: Patient states he went to bed feeling fine and woke up 2 or 3 in the morning short of breath, it continued so he called EMS. Never had this before. Has had no chest discomfort or recent cough/illness. Vaccinated to some degree against COVID and has had no exposures to anyone with COVID that he knows of recently. No recent leg swelling. No recent travel out of the area or history of blood clots that he knows of. Per EMS, blood pressure over 200, 91% on room air, they put him on 3 L nasal cannula which brought him up to 96%. Patient is an active smoker. [facility] Medical History (Updated 06/01/22 @ 06:[address] Brian Turner MD) GERD (gastroesophageal reflux disease) Hypertension Pulmonary edema Shortness of breath STEMI (ST elevation myocardial infarction) Home Medications amlodipine 5 mg tablet 5 mg PO DAILY 06/01/22 [History Last Taken Unknown] atorvastatin 40 mg tablet 40 mg PO DAILY 06/01/22 [History Last Taken Unknown] ezetimibe 10 mg tablet 10 mg PO DAILY 06/01/22 [History Last Taken Unknown] losartan 100 mg tablet 100 mg PO DAILY 06/01/22 [History Last Taken Unknown] metoprolol succinate 100 mg tablet,extended release 24 hr 100 mg PO DAILY 06/01/22 [History Last Taken Unknown] pantoprazole 40 mg tablet,delayed release 40 mg PO DAILY 06/01/22 [History Last Taken Unknown] Allergy/AdvReac Type Severity Reaction Status Date / Time No Known Allergies Allergy Verified 06/01/22 06:17 Surgical History Hx of CABG Social History Smoking Status: Current every day smoker tobacco type: cigarettes ROS ROS ED Constitutional Constitutional ED: Denies chills or fever(s) Eyes Eyes: Denies change in vision or diplopia ENT ENT ED: Denies rhinorrhea or sore throat Cardiovascular Cardiovascular: Reports orthopnea; Denies chest pain, palpitations or racing heartbeat Respiratory/Chest Respiratory/Chest: Reports dyspnea and orthopnea; Denies cough Gastrointestinal Gastrointestinal: Denies abdominal pain, diarrhea, nausea or vomiting Genitourinary Genitourinary ED: Denies dysuria or hematuria Musculoskeletal Musculoskeletal: Denies back pain or neck pain Integumentary Denies abscess or rash Neurologic Neurologic: Denies headache(s), paresthesias or weakness Psychiatric Psychiatric: Denies anxiety or suicidal thoughts EXAM Physical Exam Const Vital Signs: 06/01/22 06:07 06/01/22 06:12 06/01/22 06:30 Temperature 98.5 F Temperature Source Temporal Pulse Rate 108 H 75 Respiratory Rate 30 H 20 H Respiratory Effort Short of Breath Respiratory Depth Deep Respiratory Pattern Tachypnea Normal Blood Pressure 229/104 H Blood Pressure Mean 145 Pulse Ox 88 Oxygen Delivery Method Room Air Room Air Fraction of Inspired Oxygen (FIO2) 06/01/22 06:38 06/01/22 06:28 06/01/22 06:36 Temperature Temperature Source Pulse Rate 80 65 Respiratory Rate 13 25 H Respiratory Effort Respiratory Depth Respiratory Pattern Normal Blood Pressure 160/87 H Blood Pressure Mean 111 Pulse Ox 94 91 95 Oxygen Delivery Method Room Air Room Air Fraction of Inspired Oxygen (FIO2) 60 Positive well nourished, well developed and obese General Appearance ED: well developed and NAD Nutritional Appearance: obese HEENT Reports moist mucous membranes normocephalic and atraumatic Eyes PERRL and EOMs intact bilaterally Neck full ROM, supple and no JVD Resp Resp Narrative: Tachypneic, mild resp distress. Diffusely diminished breath sounds, sounds tight, slight expiratory wheezes especially at bases. Cardio no murmurs Cardio Narrative: Irregularly irregular Rate: tachycardic GI non-tender and non-distended Auscultation: normoactive bowel sounds Palpation: soft Back/Spine no CVA tenderness General Back: other FROM Extremity normal to inspection and no calf tenderness General Extremety ED: Negative for edema, pulses abnormal or tenderness General Extremity: Negative for edema or pulses abnormal Neuro oriented x3, CN's II-XII intact bilaterally and no sensory deficits noted Sensorium / Orientation: awake and alert Motor Exam: strength 5/5 throughout Skin no rashes or lesions noted and no wounds MDM MDM MDM Narrative Medical decision making narrative: Patient was 88% on room air, so we placed him back on 3 L nasal cannula to keep him into the 90s. Still in mild respiratory distress after albuterol so we placed him on BiPAP which helped and he tolerated it. EKG does appear to show atrial fibrillation. Chest x-ray 1 view on my interpretation appears to show CHF/pulmonary edema with cardiomegaly. No prior echo available in the system. The last time he was here was about 9 years ago and he was intubated in the ED for pulmonary edema. His blood pressure over 220/100s on multiple measurements, he was given hydralazine this brought it down to 160/87 which helped his b reathing as well. Plan is for admission and further treatment and evaluation. Breathing much more comfortably on BiPAP. Lab Data Attestation: I reviewed the patient's lab results. Labs: Laboratory Results - last 24 hr 06/01/22 06/01/22 06:13 06:13 WBC 8.1 RBC 5.61 Hgb 16.0 Hct 48.1 MCV 85.7 MCH 28.5 MCHC 33.3 RDW Std Deviation 40.4 RDW Coeff of Jorge 13.2 Plt Count 226 MPV 9.6 Immature Gran % (Auto) 0.400 Neut % (Auto) 58.7 Lymph % (Auto) 28.9 [place] % (Auto) 8.3 Eos % (Auto) 3.0 Baso % (Auto) 0.7 Absolute Neuts (auto) 4.8 Absolute Lymphs (auto) 2.35 Nucleated RBC % 0 Sodium 141 Potassium 3.7 Chloride 107 Carbon Dioxide 27.0 Anion Gap 7 BUN 18 Creatinine 1.29 Estim Creat Clear Calc 64.52 Est GFR (MDRD) Af Amer 72 Est GFR (MDRD) Non-Af 59 L BUN/Creatinine Ratio 14.0 Glucose 147 H Calcium 7.7 L Troponin I High Sens 21 Rhythm Strip Rhythm Strip: A-fib Rate: 90 Ectopy: None EKG Initial EKG: Attestation: I personally reviewed and interpreted this EKG as follows: Interpretation: No Acute Injury Pattern, Atrial Fibrillation and Non- Specific ST Changes Prior EKG tracings: not available for review Critical Care Time Critical Care Time: Yes Critical care time (excluding procedures): 30-74 minutes (33 min), Including time spent:, Discussing w/Patient &/or Family/Produce Team Lead, Discussing w/Consultants, Arranging Admission or Transfer and Performing Direct Patient Care at Bedside Discharge Plan Dx/Rx/DC Orders Clinical Impression: Acute respiratory failure with hypoxia, Acute CHF, Hypertensive urgency, Atrial fibrillation Disposition Disposition: Acute Care [facility]
[2022-06-01] MEDS: Labetalol (Prefilled) 20 MG/4 ML IV (06:20)
[2022-06-01 06:28] LABS: Absolute Lymphocyte Count 2.35 X10^3/uL (0.83-4.51); Absolute Neutrophil Count 4.8 X10^3/uL (2.0-7.7); Basophil# 0.06 X10^3/uL; Basophil% 0.7 % (0-1); Eosinophil# 0.24 X10^3/uL; Hematocrit 48.1 % (40-54); Lymphocyte # 2.35 X10^3/ul (0.83-4.51); Lymphocyte % 28.9 % (19-41); Mean Corp Hgb Conc 33.3 g/dL (32-36); Mean Corpuscular Hgb 28.5 pg (27.0-32.0); Mean Corpuscular Volume 85.7 fL (80-94); Mean Platelet Vol. 9.6 fl (6.2-12.0); Monocyte# 0.67 X10^3/uL; Monocyte% 8.3 % (0-10); NRBC Flagged by Analyzer 0 % (0-5); Neutrophil # 4.77 X10^3/uL (2.7-7.7); Neutrophil % 58.7 % (47-70); Platelet Count 226 K/mm3 (150-450); RBC Distribution Width CV 13.2 % (11.6-14.6); RBC Distribution Width SD 40.4 fl (35.1-43.9); Red Blood Count 5.61 M/mm3 (4.6-6.2); White Blood Count 8.1 K/mm3 (4.4-11.0)
[2022-06-01] MEDS: Albuterol 2.5 MG/3 ML VIAL.NEB. INHALATION (06:30)
--- NOTE | 2022-06-01 06:45 | RAD_ITS ---
INDICATION: dyspnea EXAMINATION/TECHNIQUE: X-RAY - XR Chest 1 View: 2 images AP chest COMPARISON: None. FINDINGS: LINES/DEVICES: None. LUNGS: No consolidation or effusion. Minimal bilateral perihilar interstitial thickening. No pneumothorax. MEDIASTINUM AND CARDIOVASCULAR STRUCTURES: Borderline cardiomegaly.. BONES AND SOFT TISSUES: Unremarkable. Sternotomy wires are midline and intact. RAD/Chest 1 View (Portable) IMPRESSION: No radiographic evidence of consolidative pneumonia. Borderline cardiomegaly with mild interstitial edema. Electronically Signed: Bry Ladd MD at 7:15 EDT ,
[2022-06-01 06:47] LABS: Anion Gap 7 (5-15); BUN 18 mg/dL (7-18); Calcium,Total 7.7 mg/dL (8.5-10.1); Chloride 107 mmol/L (98-107); Creatinine, Serum 1.29 mg/dL (0.70-1.30); EST Glomerular Filtration Rate 59 mL/min (>60); Est Glom Filt Rate - Afr Amer 72 mL/min (>60); Estimated Creatinine Clearance 64.52 ml/min; Glucose 147 mg/dL (74-106); Potassium 3.7 mmol/L (3.5-5.1); Sodium Level 141 mmol/L (136-145); Troponin-I HS 21 pg/mL (3.0-78.0)
[2022-06-01] MEDS: Furosemide 40 MG/4 ML Vial IV ×3 (07:06→21:22)
--- NOTE | 2022-06-01 07:20 | PCM.HP.STD ---
HPI - General General Date of Admission: 06/01/22 Date of Service: 06/01/22 Chief Complaint: Shortness of breath -A few hours prior to admission HPI Narrative ANNE CATALAN, is a 66 M who presents With the above. Patient has past medical history of CAD status post CABG. he does not follow any certified registered nurse practitioner. He is an active smoker. He admits to taking all his medications. He denies missing any medications. He stated that he was in his usual state of health when he woke up this morning feeling short of breath. He called the EMS, he was found to be in A. fib. His oxygen saturation was 91% on room air, improved to 96% with 3 L. In the emergency room,Patient blood pressure 229/104, heart rate 108, respiratory rate is 30, temperature 98.5 F, oxygen saturation 88% on room air. He was found to be in respiratory distress, started on BiPAP. WBC count is 8.1, hemoglobin 16.2, platelet count 226. Sodium is 141, potassium 3.7, chloride 107, bicarbonate 27, BUN 18, creatinine 1.29, glucose 147, calcium 7.7, troponin 21. EKG shows atrial fibrillation. Chest x-ray showed borderline cardiomegaly with mild interstitial edema. [facility] Medical History GERD (gastroesophageal reflux disease) Hypertension Pulmonary edema Shortness of breath STEMI (ST elevation myocardial infarction) Home Medications amlodipine 5 mg tablet 5 mg PO DAILY 06/01/22 [History Last Taken Unknown] atorvastatin 40 mg tablet 40 mg PO DAILY 06/01/22 [History Last Taken Unknown] ezetimibe 10 mg tablet 10 mg PO DAILY 06/01/22 [History Last Taken Unknown] losartan 100 mg tablet 100 mg PO DAILY 06/01/22 [History Last Taken Unknown] metoprolol succinate 100 mg tablet,extended release 24 hr 100 mg PO DAILY 06/01/22 [History Last Taken Unknown] pantoprazole 40 mg tablet,delayed release 40 mg PO DAILY 06/01/22 [History Last Taken Unknown] Allergy/AdvReac Type Severity Reaction Status Date / Time No Known Allergies Allergy Verified 06/01/22 06:17 Family History adopted adopted Surgical History Hx of CABG Social History Smoking Status: Current every day smoker tobacco type: cigarettes alcohol intake: current substance use type: does not use Vital Signs Vital Signs Vital Signs: 06/01/22 06:07 06/01/22 06:12 06/01/22 06:30 Temperature 98.5 F Temperature Source Temporal Pulse Rate 108 H 75 Respiratory Rate 30 H 20 H Respiratory Effort Short of Breath Respiratory Depth Deep Respiratory Pattern Tachypnea Normal Blood Pressure 229/104 H Blood Pressure Mean 145 Pulse Ox 88 Oxygen Delivery Method Room Air Room Air Fraction of Inspired Oxygen (FIO2) 06/01/22 06:38 06/01/22 06:28 06/01/22 06:36 Temperature Temperature Source Pulse Rate 80 65 Respiratory Rate 13 25 H Respiratory Effort Respiratory Depth Respiratory Pattern Normal Blood Pressure 160/87 H Blood Pressure Mean 111 Pulse Ox 94 91 95 Oxygen Delivery Method Room Air Room Air Fraction of Inspired Oxygen (FIO2) 60 06/01/22 07:10 Temperature Temperature Source Pulse Rate 83 Respiratory Rate 15 Respiratory Effort Respiratory Depth Respiratory Pattern Blood Pressure 166/86 H Blood Pressure Mean 112 Pulse Ox 97 Oxygen Delivery Method Bi-pap Fraction of Inspired Oxygen (FIO2) Weight Weight: 116.3 kg Body Mass Index (BMI) 33.8 Physical Exam Narrative Physical exam: General: Alert, Oriented x3, Cooperative, on BiPAP HEENT: Atraumatic Oral: Moist Mucosa Neck: Supple Lungs: Diminished to auscultation Cardiovascular: HS I+II, regular, no murmurs Abdomen: Bowel Sounds Present, Soft, Non Tender Extremities: Bilateral leg edema +1 Skin: No rashes, No breakdown Neurological: Grossly intact Psych/Mental Status: Appropriate Results Lab / Micro Data Result Diagrams: 06/01/22 06:13 06/01/22 06:13 Labs: Laboratory Results - last 24 hr 06/01/22 06:13: WBC 8.1, RBC 5.61, Hgb 16.0, Hct 48.1, MCV 85.7, MCH 28.5, MCHC 33.3, RDW Std Deviation 40.4, RDW Coeff of Jorge 13.2, Plt Count 226, MPV 9.6, Immature Gran % (Auto) 0.400, Neut % (Auto) 58.7, Lymph % (Auto) 28.9, [place] % (Auto) 8.3, Eos % (Auto) 3.0, Baso % (Auto) 0.7, Absolute Neuts (auto) 4.8, Absolute Lymphs (auto) 2.35, Nucleated RBC % 0 06/01/22 06:13: Sodium 141, Potassium 3.7, Chloride 107, Carbon Dioxide 27.0, Anion Gap 7, BUN 18, Creatinine 1.29, Estim Creat Clear Calc 64.52, Est GFR (MDRD) Af Amer 72, Est GFR (MDRD) Non-Af 59 L, BUN/Creatinine Ratio 14.0, Glucose 147 H, Calcium 7.7 L, Troponin I High Sens 21 Micro: Microbiology 06/01/22 06:17 Nasal Secretion SARS-CoV-2 & FLU Antigen (Rapid) - Final Rhythm Strip Rhythm Strip: A-fib Rate: 90 Ectopy: None Radiology Impression Chest X-Ray 06/01/22 06:45 IMPRESSION: No radiographic evidence of consolidative pneumonia. Borderline cardiomegaly with mild interstitial edema. Electronically Signed: Bry Ladd MD at 7:15 EDT , Assessment & Plan Assessment/Plan (1) Acute respiratory failure with hypoxia: (2) Acute CHF: (3) Atrial fibrillation: (4) Hypertensive emergency: PLAN: Plan 1. Acute hypoxic respiratory failure secondary to acute flash pulmonary edema Patient is currently on BiPAP. Respiratory status appears to have improved with Lasix, aerosol treatment and labetalol We will continue to wean off oxygen for more than 94% 2. Hypertensive emergency, in a patient with past medical history of hypertension Patient admits to taking all his blood pressure medication Blood pressure improved with labetalol Will resume all medications, hydralazine as needed 3. Atrial fibrillation, newly diagnosed, CHADS-VASC2 score is 3, rate controlled now Continue on metoprolol, start on Lovenox SC BID 4. Nicotine dependence, advised to quit, will continue on replacement 5. Hyperlipidemia, continue statin 6. DVT prophylaxis?therapeutic Lovenox SC I discussed and explained in details the various types of CODE STATUS-full code, DNR CCA, DNR CC. Patient chose full code and wants everything done including intubation and mechanical ventilator. Time spent discussing CODE STATUS 16 minutes Charges/Coding Visit Charges Inpatient E&M: 73802 Init Hosp L3 Procedures Hospitalists Procedures: 33991 Advncd Care Plan 30 Min
--- NOTE | 2022-06-01 07:22 | ECHOCS_ITS ---
Reason For Study: Dyspnea/SOB Procedure This was a 2D Doppler, Color Flow transthoracic echocardiogram. The study was technically difficult. Contrast injection was performed. Exam performed portable in patient room. Left Ventricle Normal LV size. Moderate concentric left ventricular hypertrophy. Left ventricular systolic function is normal. The estimated ejection fraction is 55 %. No regional wall motion abnormalities noted. Right Ventricle Normal RV size. Normal systolic function. Atria Normal left atrium. 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 measures1.8 by 2.4cm. Normal right atrium. Mitral Valve Normal mitral valve. Tricuspid Valve Normal tricuspid valve. Aortic Valve Trisinus/trileaflet aortic valve. Pulmonic Valve Normal pulmonic valve. Great Vessels Normal aortic root. The pulmonary artery is normal size. Normal inferior vena cava. Pericardium/Pleural No pericardial effusion. Medication Diluted definity 2ml given slow IV push to enhance endocardial definition. MMode/2D Measurements & Calculations LVIDd: 4.2 cm IVSd: 1.5 cm LA dimension: 4.7 cm LVIDs: 3.4 cm LVPWd: 1.3 cm RVDd: 3.7 cm FS: 19.7 % Doppler Measurements & Calculations MV E max keli: 91.1 cm/sec Ao V2 max: 136.7 cm/sec LV V1 max: 135.9 cm/sec Ao max P.5 mmHg LV V1 max P.4 mmHg PA V2 max: 136.0 cm/sec PA V2 mean: 94.1 cm/sec ECHO/Echo Complete W/ Contrast Interpretation Summary Normal LV size. Left ventricular systolic function is normal. The estimated ejection fraction is 55 %. Normal left atrium. 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 measures1.8 by 2.4cm Moderate concentric left ventricular hypertrophy. Contrast injection was performed. Ordering Physician: Marifer Barton Performed By: Dorian Underwood RCS
[2022-06-01 07:51] LABS: AST(SGOT) 25 U/L (15-37); Alanine Aminotransfer ALT/SGPT 34 U/L (16-61); Albumin, Serum 3.6 g/dL (3.2-5.0); Alkaline Phosphatase 113 U/L (45-117); Bilirubin, Direct 0.07 mg/dL (0.00-0.30); Globulin 4.3 g/dL (2.2-4.2); Protein, Total 7.9 g/dL (6.4-8.2)
[2022-06-01 07:57] LABS: BNP,B-Type NATRIURETIC PEPTIDE 156.4 pg/mL (0-100)
[2022-06-01 08:50] LABS: Hemoglobin A1c 6.2 % (3.8-5.6)
[2022-06-01 10:00] LABS: Troponin-I HS 31 pg/mL (3.0-78.0)
[2022-06-01] MEDS: Metoprolol(XL)Succ 100 MG Tablet PO (10:38)
[2022-06-01] MEDS: Pantoprazole Sodium 40 MG Tablet PO (10:38)
[2022-06-01] MEDS: Ezetimibe 10 MG Tablet PO (10:38)
[2022-06-01] MEDS: amLODIPine 5 MG Tablet PO (10:38)
[2022-06-01] MEDS: Losartan Potassium 100 MG Tablet PO (10:38)
[2022-06-01] MEDS: Atorvastatin Calcium 40 MG Tablet PO (10:38)
[2022-06-01] MEDS: Enoxaparin 120 MG/0.8 ML Syringe SC ×2 (10:41→18:27)
--- NOTE | 2022-06-01 11:15 | CASEMGMT ---
RN JONNA Face to Face with patient for initial transition planning/care coordination assessment. RN CM introduced self and role at [facility]. Patient lying in bed, alert and oriented. Patient willing to participate in assessment and is able to answer all questions appropriately. Care providers, pharmacy, and demographics verified. Patient wishes to discharge home, denies need for home health at this time. Patient states he has no further needs or concerns at this time. CM to follow for discharge planning needs that may arise. PCP: Jigar Specialists: none Preferred Pharmacy: [facility] Prescription Benefit: yes Living Will/HPOA: none LNOK: daughter, granddaughter Living Arrangements: Patient lives with daughter and granddaughter in a first floor apartment with no steps to enter. Patient states he is independent at home. Transportation: self, daughter DME/HHC: Patient denies DME in the home. No previous HHC or SNF. Disposition Plan: Patient to discharge home with family support and follow-up plans in place. Gunjan AKINS, RN, CM
[2022-06-01] MEDS: Magnesium Sulfate 4gm/100mL 4 GM/100 ML IV.SOLN. IV (11:55)
[2022-06-01 12:58] LABS: Troponin-I HS 36 pg/mL (3.0-78.0)
[2022-06-01 14:22] LABS: Thyroid Stim Hormone (TSH) 2.07 uIU/mL (0.358-3.74)
--- NOTE | 2022-06-01 16:18 | CON.PCM.CA_ITS ---
Assessment & Plan Assessment/Plan (1) Atrial fibrillation: PLAN: He does have evidence of atrial fibrillation which appears to be fairly new onset. The exact duration is unclear at this time. However due to his age and hypertension I would recommend that his [id number] score is elevated enough he needs to be anticoagulated long-term. * Ventricular response rate is controlled on account of his beta-blockade. This will be continued. (2) Acute CHF: PLAN: He did present with acute shortness of breath likely secondary to heart failure with preserved ejection fraction. He was noted to be markedly hypertens lee as well as in atrial fibrillation and both of these could have contributed to his symptomatology. We will continue to aggressively diurese him We will continue beta-oksana Continue ARB (3) Hypertensive emergency: PLAN: He did present with hypertensive emergency. My recommendation is to continue the current medical therapy and get his blood pressure under better control. (4) Myxoma: PLAN: He has been noted to have a mass in the left atrium and I would recommend obtaining a transesophageal echocardiogram to further clarify the above. Brenna crawley on the findings further recommendations will be made. Thank you for allowing me to participate in the care of your patient. Please don't hesitate to call if any issues arise. (5) CAD (coronary artery disease) of artery bypass graft: PLAN: He does have a history of coronary artery disease status post coronary bypass surgery remotely. He has not had any recent follow-up. After his echocardiogram has been reevaluated he may be a candidate for a pharmacologic stress test to exclude progression of the coronary artery disease. Thank you for allowing me to participate in the care of your patient. Please don't hesitate to call if any issues arise. HPI Consult Data Date of Consult: 06/01/22 HPI Narrative HPI Narrative: ANNE CATALAN, is a 66 M who presents with shortness of which he says was fairly acute. He had been in his usual state of health. He does have a history of hypertension, coronary artery bypass surgery over 8 years ago and not following with any youth manager. He did not experience any chest discomfort but thinks he had mild palpitations. He presented to the emergency room and was noted to be in atrial fibrillation with a rapid ventricular response rate and short of breath requiring intravenous Lasix as well as BiPAP. Cardiac enzymes were obtained and an echocardiogram was performed today which demonstrated a mass in his left atrium suggestive of a left atrial myxoma. He was diuresed and currently feels quite well. Cardiology was called for further evaluation due to the echocardiographic findings. [facility] Medical History GERD (gastroesophageal reflux disease) Hypertension Pulmonary edema Shortness of breath STEMI (ST elevation myocardial infarction) Home Medications amlodipine 5 mg tablet 5 mg PO DAILY blood pressure 06/01/22 [History Last Taken 05/31/22] aspirin 325 mg tablet 325 mg PO DAILY heart health 06/01/22 [History Last Taken 05/31/22] atorvastatin 40 mg tablet 40 mg PO DAILY cholesterol 06/01/22 [History Last Taken 05/31/22] ezetimibe 10 mg tablet 10 mg PO DAILY cholesterol 06/01/22 [History Last Taken 05/31/22] losartan 100 mg tablet 100 mg PO DAILY blood pressure 06/01/22 [History Last Taken 05/31/22] metoprolol succinate 100 mg tablet,extended release 24 hr 100 mg PO DAILY blood pressure 06/01/22 [History Last Taken 05/31/22] pantoprazole 40 mg tablet,delayed release 40 mg PO DAILY GERD 06/01/22 [History Last Taken 05/31/22] Allergy/AdvReac Type Severity Reaction Status Date / Time No Known Allergies Allergy Verified 06/01/22 06:17 Family History adopted Surgical History Hx of CABG Social History (Updated 06/01/22 @ 10:31 by Monica Hilario) household members: children housing: apartment Smoking Status: Current every day smoker tobacco type: cigarettes alcohol intake: current substance use type: does not use ROS Constitutional Constitutional: Denies fever(s) or weight loss Eyes Eyes: Reports systems reviewed and no addt'l complaints, except as documented ENT HEENT: Reports systems reviewed and no addt'l complaints, except as documented Cardiovascular Cardiovascular: Reports dyspnea at rest, dyspnea on exertion and palpitations; Denies chest pain at rest, chest pain with activity, edema or paroxysmal nocturnal dyspnea Respiratory/Chest Respiratory/Chest: Reports shortness of breath at rest and shortness of breath with exertion; Denies dyspnea on exertion or productive cough Gastrointestinal Gastrointestinal: Denies change in bowel habits, nausea, vomiting or weight changes Genitourinary Genitourinary: Denies difficulty urinating Musculoskeletal Musculoskeletal: Denies joint stiffness or muscle weakness Integumentary Integumentary: Denies lesions Neurologic Neurologic: Denies dizziness or syncope Psychiatric Psychiatric: Denies anxiety Endocrine Endocrinology: Denies excessive sweating or fatigue Hematologic/Lymphatic Hematologic/Lymphatic: Denies anemia Allergic/Immunologic Allergic/Immunologic: Denies seasonal rhinorrhea Physical Exam Const alert, oriented x3 and no apparent distress General Appearance: cooperative HEENT hearing grossly normal bilaterally Head and Scalp: atraumatic Eyes EOMs intact bilaterally Neck General: normal visual inspection Chest inspection of chest normal and palpation of chest normal Resp normal respiratory effort Auscultation: clear to auscultation bilaterally Cardio regular rhythm, S1 normal heart sound and S2 normal heart sound Jugular Venous Distention: JVD Rhythm: abnormal rhythm GI normal to inspection, nondistended, normoactive bowel sounds Extremity normal capillary refill and no pedal edema Peripheral Pulses: Yes pulses 2+ throughout and femoral pulses present Skin no rashes or lesions noted Neuro oriented x3 and CN's II-XII intact bilaterally Psych Appearance: grossly normal and appropriate Risk Stratification Risk Stratification Applicable: No Objective Data Vital Signs: Vital Signs Temp Pulse Resp BP Pulse Ox O2 Del Method FiO2 98 F 60 18 141/88 H 95 Room Air 40 06/01/22 14:05 06/01/22 15:01 06/01/22 14:05 06/01/22 14:05 06/01/22 13:41 06/01/22 13:44 06/01/22 08:25 Oxygen Delivery Method Room Air Weight: 256 lb Body Mass Index (BMI) 33.7 Intake & Output: Intake and Output for Last 24 Hours 05/30/22 05/31/22 06/01/22 23:59 23:59 23:59 Intake Total 340 / 340 Output Total 1675 / 1675 Balance -1335 / -1335 Lab / Micro Data Result Diagrams: 06/01/22 06:13 06/01/22 06:13 Labs: Laboratory Results - last 24 hr 06/01/22 06:13: WBC 8.1, RBC 5.61, Hgb 16.0, Hct 48.1, MCV 85.7, MCH 28.5, MCHC 33.3, RDW Std Deviation 40.4, RDW Coeff of Jorge 13.2, Plt Count 226, MPV 9.6, Immature Gran % (Auto) 0.400, Neut % (Auto) 58.7, Lymph % (Auto) 28.9, [place] % (Auto) 8.3, Eos % (Auto) 3.0, Baso % (Auto) 0.7, Absolute Neuts (auto) 4.8, Absolute Lymphs (auto) 2.35, Nucleated RBC % 0 06/01/22 06:13: Sodium 141, Potassium 3.7, Chloride 107, Carbon Dioxide 27.0, Anion Gap 7, BUN 18, Creatinine 1.29, Estim Creat Clear Calc 64.52, Est GFR ( RD) Af Amer 72, Est GFR (MDRD) Non-Af 59 L, BUN/Creatinine Ratio 14.0, Glucose 147 H, Calcium 7.7 L, Troponin I High Sens 21 06/01/22 06:13: B-Natriuretic Peptide 156.4 H 06/01/22 06:21: Magnesium 1.0 L 06/01/22 06:21: Total Bilirubin 0.90, Direct Bilirubin 0.07, AST 25, ALT 34, Alkaline Phosphatase 113, Total Protein 7.9, Albumin 3.6, Globulin 4.3 H 06/01/22 07:45: Hemoglobin A1c 6.2 H 06/01/22 09:28: Troponin I High Sens 31 06/01/22 11:45: Troponin I High Sens 36 06/01/22 11:45: TSH 2.07 Micro: Microbiology 06/01/22 06:17 Nasal Secretion SARS-CoV-2 & FLU Antigen (Rapid) - Final Rhythm Strip Rhythm Strip: A-fib Rate: 90 Ectopy: None Cardiology Labs/Tests 06/01/22 06:13: WBC 8.1, RBC 5.61, Hgb 16.0, Hct 48.1, MCV 85.7, MCH 28.5, MCHC 33.3, Plt Count 226, MPV 9.6, Immature Gran % (Auto) 0.400, Neut % (Auto) 58.7, Lymph % (Auto) 28.9, [place] % (Auto) 8.3, Eos % (Auto) 3.0, Baso % (Auto) 0.7, Absolute Neuts (auto) 4.8, Nucleated RBC % 0 06/01/22 06:13: Sodium 141, Potassium 3.7, Chloride 107, Carbon Dioxide 27.0, Anion Gap 7, BUN 18, Creatinine 1.29, Est GFR (MDRD) Af Amer 72, Est GFR (MDRD) Non-Af 59 L, BUN/Creatinine Ratio 14.0, Glucose 147 H, Calcium 7.7 L 06/01/22 06:13: B-Natriuretic Peptide 156.4 H 06/01/22 06:21: Magnesium 1.0 L 06/01/22 06:21: Total Bilirubin 0.90, Direct Bilirubin 0.07 06/01/22 07:45: Hemoglobin A1c 6.2 H Rhythm: EKG: ECHO: Stress Test: Cardiac Cath: PCI: CT Surgery: Holter monitor: EPS: PPM: CXR: Chest CT Scan: Radiography Diagnostic Testing: Radiology Impression Chest X-Ray 06/01/22 06:45 IMPRESSION: No radiographic evidence of consolidative pneumonia. Borderline cardiomegaly with mild interstitial edema. Electronically Signed: Bry Ladd MD at 7:15 EDT , Echocardiogram 06/01/22 07:22 Interpretation Summary Normal LV size. Left ventricular systolic function is normal. The estimated ejection fraction is 55 %. Normal left atrium. 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 measures1.8 by 2.4cm Moderate concentric left ventricular hypertrophy. Contrast injection was performed. Ordering Physician: Marifer Barton Performed By: Dorian Underwood RCS
[2022-06-01] MEDS: 0.9% Saline Lock 10 ML Syringe IV (21:22)
[2022-06-02] VITALS (20 sets, daily range): BP systolic 118–149; BP diastolic 62–80; PULSE 35–75; RESP 14–18; TEMP 36.4–36.9; O2SAT 90–99
[2022-06-02] MEDS: 0.9% Saline Lock 10 ML Syringe IV ×2 (05:39→22:30)
[2022-06-02] MEDS: Enoxaparin 120 MG/0.8 ML Syringe SC (05:39)
[2022-06-02] MEDS: Furosemide 40 MG/4 ML Vial IV (05:39)
[2022-06-02 06:25] LABS: Absolute Lymphocyte Count 2.14 X10^3/uL (0.83-4.51); Basophil# 0.06 X10^3/uL; Basophil% 0.7 % (0-1); Eosinophil# 0.22 X10^3/uL; Eosinophils% 2.7 % (0-5); Hematocrit 42.7 % (40-54); Hemoglobin 14.8 g/dL (13.0-16.5); Lymphocyte # 2.14 X10^3/ul (0.83-4.51); Lymphocyte % 26.5 % (19-41); Mean Corp Hgb Conc 34.7 g/dL (32-36); Mean Corpuscular Volume 83.6 fL (80-94); Mean Platelet Vol. 10.1 fl (6.2-12.0); Monocyte# 0.62 X10^3/uL; Monocyte% 7.7 % (0-10); NRBC Flagged by Analyzer 0 % (0-5); Neutrophil # 5.03 X10^3/uL (2.7-7.7); Neutrophil % 62.2 % (47-70); Platelet Count 200 K/mm3 (150-450); RBC Distribution Width CV 13.2 % (11.6-14.6); Red Blood Count 5.11 M/mm3 (4.6-6.2); White Blood Count 8.1 K/mm3 (4.4-11.0)
[2022-06-02] MEDS: 0.9% Normal Saline 1,000 ML 15 ML IV (06:32)
[2022-06-02 06:58] LABS: AST(SGOT) 22 U/L (15-37); Alanine Aminotransfer ALT/SGPT 22 U/L (16-61); Albumin, Serum 3.4 g/dL (3.2-5.0); Alkaline Phosphatase 108 U/L (45-117); Anion Gap 8 (5-15); BUN 14 mg/dL (7-18); BUN/Creat Ratio 11.7 RATIO (10-20); Calcium,Total 7.5 mg/dL (8.5-10.1); Chloride 103 mmol/L (98-107); Cholesterol 99 mg/dL (200); EST Glomerular Filtration Rate 65 mL/min (>60); Est Glom Filt Rate - Afr Amer 78 mL/min (>60); Estimated Creatinine Clearance 69.36 ml/min; Globulin 3.4 g/dL (2.2-4.2); Glucose 117 mg/dL (74-106); High Density Lipoprotein 29 mg/dL; Potassium 3.3 mmol/L (3.5-5.1); Protein, Total 6.8 g/dL (6.4-8.2); Sodium Level 137 mmol/L (136-145); Triglycerides 178 mg/dL; Very Low Density Lipoprotein 36 mg/dL (5-40)
--- NOTE | 2022-06-02 08:00 | ECHOTEE_ITS ---
Reason For Study: R/O LA Myxoma Medication ZAHRAA probe 6VT-D (SN [id number]) passed without difficulty. No complications were noted. Cetacaine Topical [place] given X3 orally. Versed 3 mg given slow IVP. Fentanyl 50 mcg given slow IVP. Performed a rapid injection of agitated mix of 9 cc saline and 1cc air to assess for atrial septal defect. Left Ventricle Normal LV size. Left ventricular systolic function is normal. The estimated ejection fraction is 60 %. No regional wall motion abnormalities noted. Right Ventricle Normal RV size. Normal systolic function. Atria The base and atrioventricular junction appear to be thickened but no mass is noted suggestive of myxoma. Bubble contrast study negative for right to left interatrial shunt. Normal left atrium. No thrombus is detected in the left atrial appendage. Normal right atrium. Mitral Valve Normal mitral valve. Tricuspid Valve Normal tricuspid valve. Aortic Valve Normal aortic valve. Trisinus/trileaflet aortic valve. Pulmonic Valve Normal pulmonic valve. Vessels Normal aortic root. Pericardium No pericardial effusion. ECHO/Echo Transesophageal (ZAHRAA) Interpretation Summary Normal LV size. Left ventricular systolic function is normal. The estimated ejection fraction is 60 %. The base and atrioventricular junction appear to be thickened but no mass is no keila suggestive of myxoma. Bubble contrast study negative for right to left interatrial shunt. No thrombus is detected in the left atrial appendage. The previous structure identified in the right atrium was likely from acoustic shadowing. No myxoma is identified. Ordering Physician: Matthew Stein Referring Physician: Yevgeniy Kimball Performed By: Lynnette Stevens RDCS
--- NOTE | 2022-06-02 10:18 | PCM.PN.HOSP ---
Subjective Subjective Follow-up on acute hypoxic respiratory failure/acute flash pulmonary edema/newly diagnosed A. fib: Patient was seen and examined. Denied any new complaints. 2D echo done yesterday showed EF of 55%, probable myxoma of the left atrium that measures 1.8 x 2.4 cm. Patient underwent ZAHRAA and cardiac cath today. Objective Data Objective Data Vital Signs: Vital Signs Temp Pulse Resp BP Pulse Ox O2 Del Method FiO2 97.5 F L 66 16 129/78 H 96 Room Air 40 06/02/22 08:43 06/02/22 09:25 06/02/22 09:25 06/02/22 09:25 06/02/22 09:25 06/02/22 09:25 06/02/22 02:32 Oxygen Delivery Method Room Air Weight: 113.5 kg Body Mass Index (BMI) 33.7 Intake & Output: Intake and Output for Last 24 Hours 05/31/22 06/01/22 06/02/22 23:59 23:59 23:59 Intake Total 820 / 820 Output Total 2850 / 3600 1000 / 1000 Balance -2030 / -2780 -1000 / -1000 Lab / Micro Data Result Diagrams: 06/02/22 05:28 06/02/22 05:28 Labs: Laboratory Results - last 24 hr 06/01/22 11:45: Troponin I High Sens 36 06/01/22 11:45: TSH 2.07 06/02/22 05:28: WBC 8.1, RBC 5.11, Hgb 14.8, Hct 42.7, MCV 83.6, MCH 29.0, MCHC 34.7, RDW Std Deviation 40.0, RDW Coeff of Jorge 13.2, Plt Count 200, MPV 10.1, Immature Gran % (Auto) 0.200, Neut % (Auto) 62.2, Lymph % (Auto) 26.5, [place] % (Auto) 7.7, Eos % (Auto) 2.7, Baso % (Auto) 0.7, Absolute Neuts (auto) 5.0, Absolute Lymphs (auto) 2.14, Nucleated RBC % 0 06/02/22 05:28: Sodium 137, Potassium 3.3 L, Chloride 103, Carbon Dioxide 26.0, Anion Gap 8, BUN 14, Creatinine 1.20, Estim Creat Clear Calc 69.36, Est GFR (MDRD) Af Amer 78, Est GFR (MDRD) Non-Af 65, BUN/Creatinine Ratio 11.7, Glucose 117 H, Calcium 7.5 L, Total Bilirubin 0.90, AST 22, ALT 22, Alkaline Phosphatase 108, Total Protein 6.8, Albumin 3.4, Globulin 3.4, Albumin/Globulin Ratio 1.0, Triglycerides 178, Cholesterol 99, LDL Cholesterol 34, VLDL Cholesterol 36, HDL Cholesterol 29 L Micro: Microbiology 06/01/22 06:17 Nasal Secretion SARS-CoV-2 & FLU Antigen (Rapid) - Final Radiography Diagnostic Testing: Radiology Impression Echocardiogram 06/01/22 07:22 Interpretation Summary Normal LV size. Left ventricular systolic function is normal. The estimated ejection fraction is 55 %. Normal left atrium. 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 measures1.8 by 2.4cm Moderate concentric left ventricular hypertrophy. Contrast injection was performed. Ordering Physician: Marifer Barton Performed By: Dorian Underwood RCS Rhythm Strip Rhythm Strip: A-fib Rate: 90 Ectopy: None Physical Exam Narrative Physical exam: General: Alert, Oriented x3, Cooperative, comfortable on room air HEENT: Atraumatic Oral: Moist Mucosa Neck: Supple Lungs: Diminished to auscultation Cardiovascular: HS I+II, regular, no murmurs Abdomen: Bowel Sounds Present, Soft, Non Tender Extremities: Bilateral leg edema, trace Skin: No rashes, No breakdown Neurological: Grossly intact Psych/Mental Status: Appropriate Assessment & Plan Assessment/Plan (1) Acute respiratory failure with hypoxia: (2) Acute CHF: (3) Atrial fibrillation: (4) Hypertensive emergency: PLAN: Plan 1. Acute hypoxic respiratory failure secondary to acute flash pulmonary edema, resolved Patient is currently on room air 2. Hypertensive emergency, resolved, Blood pressures currently controlled Continue on losartan, metoprolol, amlodipine Continue to monitor 3. Atrial fibrillation, newly diagnosed, CHADS-VASC2 score is 3, rate controlled now Continue on metoprolol, therapeutic Lovenox We will start Eliquis at discharge 4. Nicotine dependence, continue replacement 5.Hyperlipidemia, continue statin 6. Acute flash pulmonary edema, probable acute heart failure with preserved EF, EF 55% Cardiac cath pending; cardiology following Decrease Lasix to 20 mg p.o. twice daily 7. Abnormal echo, findings suggestive of left atrial myxoma Status post ZAHRAA that was unremarkable Cardiology following 8. DVT prophylaxis?therapeutic Lovenox SC Charges/Coding Visit Charges Inpatient E&M: 03845 Subs Hosp L2
[2022-06-02] MEDS: Aspirin 325 MG Tablet PO (10:49)
[2022-06-02] MEDS: Potassium Chloride Oral Tablet 20 MEQ 40 MEQ PO (10:49)
[2022-06-02] MEDS: Losartan Potassium 100 MG Tablet PO (10:49)
[2022-06-02] MEDS: amLODIPine 10 MG Tablet PO (10:50)
--- NOTE | 2022-06-02 12:21 | NURSING ---
Report called to Neris LEVY clinical lab technologist
--- NOTE | 2022-06-02 15:03 | PN.CARD_ITS ---
Subjective Subjective Seen and evaluated. Underwent ZAHRAA as well as cardiac catheterization today. Objective Data Vital Signs: Vital Signs Temp Pulse Resp BP Pulse Ox O2 Del Method FiO2 97.5 F L 51 L 16 127/77 H 94 Room Air 40 06/02/22 08:43 06/02/22 14:45 06/02/22 14:45 06/02/22 14:45 06/02/22 14:45 06/02/22 14:45 06/02/22 02:32 Oxygen Delivery Method Room Air Weight: 250 lb 3.594 oz Body Mass Index (BMI) 33.7 Intake & Output: Intake and Output for Last 24 Hours 05/31/22 06/01/22 06/02/22 23:59 23:59 23:59 Intake Total 820 / 820 35.75 / 35.75 Output Total 2850 / 3600 1000 / 1000 Balance -2030 / -2780 -964.25 / -964.25 Lab / Micro Data Result Diagrams: 06/02/22 05:28 06/02/22 05:28 Labs: Laboratory Results - last 24 hr 06/02/22 05:28: WBC 8.1, RBC 5.11, Hgb 14.8, Hct 42.7, MCV 83.6, MCH 29.0, MCHC 34.7, RDW Std Deviation 40.0, RDW Coeff of Jorge 13.2, Plt Count 200, MPV 10.1, Immature Gran % (Auto) 0.200, Neut % (Auto) 62.2, Lymph % (Auto) 26.5, [place] % (Auto) 7.7, Eos % (Auto) 2.7, Baso % (Auto) 0.7, Absolute Neuts (auto) 5.0, Absolute Lymphs (auto) 2.14, Nucleated RBC % 0 06/02/22 05:28: Sodium 137, Potassium 3.3 L, Chloride 103, Carbon Dioxide 26.0, Anion Gap 8, BUN 14, Creatinine 1.20, Estim Creat Clear Calc 69.36, Est GFR (MDRD) Af Amer 78, Est GFR (MDRD) Non-Af 65, BUN/Creatinine Ratio 11.7, Glucose 117 H, Calcium 7.5 L, Total Bilirubin 0.90, AST 22, ALT 22, Alkaline Phosphatase 108, Total Protein 6.8, Albumin 3.4, Globulin 3.4, Albumin/Globulin Ratio 1.0, Triglycerides 178, Cholesterol 99, LDL Cholesterol 34, VLDL Cholesterol 36, HDL Cholesterol 29 L Rhythm Strip Rhythm Strip: A-fib Rate: 90 Ectopy: None Cardiology Labs/Tests 06/02/22 05:28: WBC 8.1, RBC 5.11, Hgb 14.8, Hct 42.7, MCV 83.6, MCH 29.0, MCHC 34.7, Plt Count 200, MPV 10.1, Immature Gran % (Auto) 0.200, Neut % (Auto) 62.2, Lymph % (Auto) 26.5, [place] % (Auto) 7.7, Eos % (Auto) 2.7, Baso % (Auto) 0.7, Absolute Neuts (auto) 5.0, Nucleated RBC % 0 06/02/22 05:28: Sodium 137, Potassium 3.3 L, Chloride 103, Carbon Dioxide 26.0, Anion Gap 8, BUN 14, Creatinine 1.20, Est GFR (MDRD) Af Amer 78, Est GFR (MDRD) Non-Af 65, BUN/Creatinine Ratio 11.7, Glucose 117 H, Calcium 7.5 L, Total Biliru bin 0.90, Triglycerides 178, Cholesterol 99, LDL Cholesterol 34, VLDL Cholesterol 36, HDL Cholesterol 29 L Rhythm: EKG: ECHO: Stress Test: Cardiac Cath: PCI: CT Surgery: Holter monitor: EPS: PPM: CXR: Chest CT Scan: Physical Exam Const alert, oriented x3 and no apparent distress General Appearance: cooperative HEENT hearing grossly normal bilaterally Head and Scalp: atraumatic Eyes EOMs intact bilaterally Neck General: normal visual inspection Chest inspection of chest normal and palpation of chest normal Resp normal respiratory effort Auscultation: clear to auscultation bilaterally Cardio regular rhythm, S1 normal heart sound and S2 normal heart sound Jugular Venous Distention: JVD Rhythm: abnormal rhythm GI normal to inspection, nondistended, normoactive bowel sounds Extremity normal capillary refill and no pedal edema Peripheral Pulses: Yes pulses 2+ throughout and femoral pulses present Skin no rashes or lesions noted Neuro oriented x3 and CN's II-XII intact bilaterally Psych Appearance: grossly normal and appropriate Assessment & Plan Assessment/Plan (1) Atrial fibrillation: PLAN: He does have evidence of atrial fibrillation which appears to be fairly new onset. The exact duration is unclear at this time. However due to his age and hypertension I would recommend that his [id number] score is elevated enough he needs to be anticoagulated long-term. * Ventricular response rate is controlled on account of his beta-blockade. This will be continued. (2) Acute CHF: PLAN: He did present with acute shortness of breath likely secondary to heart failure with preserved ejection fraction. He was noted to be markedly hypertensive as well as in atrial fibrillation and both of these could have contributed to his symptomatology. We will continue to aggressively diurese him We will continue beta-oksana Continue ARB (3) Hypertensive emergency: PLAN: He did present with hypertensive emergency. My recommendation is to continue the current medical therapy and get his blood pressure under better control. (4) Myxoma: PLAN: He has been noted to have a mass in the left atrium and he had a ZAHRAA performed this morning which did not confirm any such mass. 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 No further therapy is recommended. Thank you for allowing me to participate in the care of your patient. Please don't hesitate to call if any issues arise. (5) CAD (coronary artery disease) of artery bypass graft: PLAN: He does have a history of coronary artery disease status post coronary bypass surgery remotely. He underwent cardiac catheterization today which demonstrated the following: Normal left main coronary artery. Left anterior descending artery with severe disease noted in the midsegment. Left circumflex artery with severe proximal disease. Right coronary artery with moderate diffuse disease. Saphenous vein graft to right coronary artery which is patent. Saphenous vein graft to the diagonal vessel which is patent. Saphenous vein graft to the left circumflex artery which is patent. No other grafts were noted. Preserved left ventricular systolic function. Next based on the above angiogr aphic findings would recommend medical therapy. Thank you for allowing me to participate in the care of your patient. Please don't hesitate to call if any issues arise.
[2022-06-02] MEDS: Atorvastatin Calcium 40 MG Tablet PO (16:07)
[2022-06-02] MEDS: Pantoprazole Sodium 40 MG Tablet PO (16:07)
[2022-06-02] MEDS: Ezetimibe 10 MG Tablet PO (16:07)
--- NOTE | 2022-06-02 16:54 | CL.D_ITS ---
Patient Name: ANNE CATALAN Study Date: 06/02/2022 Performing: Matthew Stein MD Ht: 73 inches 185.42 cm : 1955 Wt: 250.6 lbs 113.5 kg Age: 66 Gender: male BSA: 2.37 PROCEDURE(S) PERFORMED DC04-(18468)LHC/COR/CABG DC11-(11921)AO ROOT ANGIO WITH HEART CATH CLINICAL PROFILE AND INDICATIONS Indications: Suspected CAD Heart Failure: NYHA Class: 2, Newly Diagnosed: Yes, Heart Failure Type: Diastolic Stress/Imaging Stress/Image Study Performed: No CAD Presentations: Other: htn CONCLUSIONS Severe [place] coronary disease with patent saphenous vein bypass grafts noted to the obtuse marginal branch and posterior descending artery. RECOMMENDATIONS Medical therapy DESCRIPTION OF PROCEDURE The patient arrived to the procedure lab. The risks and benefits of the procedure as well as a full description of our services here and current unavailability of surgical backup were fully explained to the patient and/or their significant other prior to the catheterization. The Timeout was completed, verifying the correct patient and procedure. The patient's procedural site was prepped and draped in the usual fashion. Local anesthetic was given subcutaneously to right groin region with Lidocaine 2%. Using a modified Seldinger technique, arterial access was obtained via the right femoral artery, a 5Fr sheath was inserted. Left Coronary Artery selective angiography was performed in multiple views using a 5 Fr. JL4 catheter. Right Coronary Artery selective angiography was then performed in multiple views using a 5 Fr. 3DRC (Moose) catheter. Saphenous Vein graft to the OM 1 selective angiography was performed in multiple views using a 5 Fr. 3DRC (Moose) catheter. Saphenous Vein graft to the OM 2 selective angiography was performed in multiple views using a 5 Fr. 3DRC (Moose) catheter. Saphenous Vein graft to the RPDA selective angiography was performed in multiple views using a 5 Fr. 3DRC (Moose) catheter. Ascending (root) aorta selective angiography was then performed in single view. Ascending (root) aorta selective angiography was then performed in single view.The arterial sheath was pulled and manual compression applied until hemostasis is achieved. CORONARY ANGIOGRAPHY DOMINANCE: Right Dominant LEFT HEART ASSESSMENT Left Ventricular Ejection Fraction: by LV Gram 60 % Normal LV wall motion Normal Left Ventricular systolic function LEFT MAIN: Angiographically normal LEFT ANTERIOR DESCENDING ARTERY: MID LAD: Diffusely diseased up to 90 % CIRCUMFLEX ARTERY: PROX CIRC: Severe disease noted in the proximal left circumflex artery distribution. RIGHT CORONARY ARTERY: Moderately severe disease noted in the right coronary artery GRAFTS: Saphenous Vein graft to the 2nd OM is patent Saphenous Vein graft to the RPDA is patent Saphenous Vein graft to the 1st Diagonal is patent AORTIC ROOT: Angiographically normal COMPLICATIONS No Complications PROCEDURE MEDICATIONS Fentanyl 50 mcg IV Versed 1 mg IV Versed 1 mg IV Oxygen: 2 L/min via nasal cannula SUMMARY OF HEMODYNAMIC DATA Time AIR REST ECG 12:58:20 AO 141/81 (105) SA 13:21:34 Signed By Matthew Stein MD On 06/02/2022 16:52:26 Matthew Stein MD
--- NOTE | 2022-06-02 18:50 | NURSING ---
This RN into room to check on pt, noted pt has pants on. Questioned pt is he had gotten out of bed to which pt replied yes, I needed to go to the bathroom and figured my time was about up so I just did it. Educated pt on importance of bedrest post cardiac cath and why RN needed to be with pt the first time out of bed. Pt verbalized understanding. Right femoral site checked, site remains soft, no bruising or bleeding noted.
[2022-06-02] MEDS: APIXABAN 5 MG TABLET PO (22:29)
[2022-06-03 03:00] VITALS: PULSE 67
[2022-06-03 05:00] VITALS: BP 124/65; PULSE 58; RESP 16; TEMP 37; O2SAT 97
[2022-06-03 05:33] LABS: Hematocrit 43.8 % (40-54); Hemoglobin 15.2 g/dL (13.0-16.5); Mean Corp Hgb Conc 34.7 g/dL (32-36); Mean Corpuscular Hgb 29.2 pg (27.0-32.0); Mean Corpuscular Volume 84.1 fL (80-94); Mean Platelet Vol. 9.8 fl (6.2-12.0); Platelet Count 206 K/mm3 (150-450); RBC Distribution Width CV 13.2 % (11.6-14.6); RBC Distribution Width SD 40.6 fl (35.1-43.9); Red Blood Count 5.21 M/mm3 (4.6-6.2); White Blood Count 8.5 K/mm3 (4.4-11.0)
[2022-06-03 06:01] LABS: Anion Gap 8 (5-15); BUN 15 mg/dL (7-18); BUN/Creat Ratio 13.3 RATIO (10-20); Chloride 103 mmol/L (98-107); Creatinine, Serum 1.13 mg/dL (0.70-1.30); EST Glomerular Filtration Rate 69 mL/min (>60); Est Glom Filt Rate - Afr Amer 84 mL/min (>60); Estimated Creatinine Clearance 73.65 ml/min; Glucose 129 mg/dL (74-106); Potassium 3.6 mmol/L (3.5-5.1); Sodium Level 136 mmol/L (136-145)
[2022-06-03 06:24] LABS: International Normalized Ratio 1.1; Partial Thromboplast Time 28.3 Seconds (24.1-36.2); Prothrombin Time (Protime)PT. 14.3 SECONDS (11.7-14.9)
[2022-06-03 07:00] VITALS: PULSE 72
--- NOTE | 2022-06-03 07:46 | PN.CARD_ITS ---
Subjective Subjective Patient seen and evaluated. Appears to be doing quite well this morning. No complaints. No significant pauses noted. Objective Data Vital Signs: Vital Signs Temp Pulse Resp BP Pulse Ox O2 Del Method FiO2 98.6 F 72 16 124/65 H 97 Room Air 40 06/03/22 05:00 06/03/22 07:00 06/03/22 05:00 06/03/22 05:00 06/03/22 05:00 06/03/22 05:00 06/02/22 02:32 Oxygen Delivery Method Room Air Weight: 250 lb 3.594 oz Body Mass Index (BMI) 33.7 Intake & Output: Intake and Output for Last 24 Hours 06/01/22 06/02/22 06/03/22 23:59 23:59 23:59 Intake Total 820 / 820 555.75 / 555.75 400 / 400 Output Total 2850 / 3600 1200 / 1200 Balance -2030 / -2780 -644.25 / -644.25 400 / 400 Lab / Micro Data Result Diagrams: 06/03/22 05:23 06/03/22 05:23 Labs: Laboratory Results - last 24 hr 06/03/22 05:23: WBC 8.5, RBC 5.21, Hgb 15.2, Hct 43.8, MCV 84.1, MCH 29.2, MCHC 34.7, RDW Std Deviation 40.6, RDW Coeff of Jorge 13.2, Plt Count 206, MPV 9.8 06/03/22 05:23: PT 14.3, INR 1.1, APTT 28.3 06/03/22 05:23: Sodium 136, Potassium 3.6, Chloride 103, Carbon Dioxide 25.0, Anion Gap 8, BUN 15, Creatinine 1.13, Estim Creat Clear Calc 73.65, Est GFR (MDRD) Af Amer 84, Est GFR (MDRD) Non-Af 69, BUN/Creatinine Ratio 13.3, Glucose 129 H, Calcium 8.0 L Rhythm Strip Rhythm Strip: A-fib Rate: 90 Ectopy: None Cardiology Labs/Tests 06/03/22 05:23: WBC 8.5, RBC 5.21, Hgb 15.2, Hct 43.8, MCV 84.1, MCH 29.2, MCHC 34.7, Plt Count 206, MPV 9.8 06/03/22 05:23: PT 14.3, INR 1.1, APTT 28.3 06/03/22 05:23: Sodium 136, Potassium 3.6, Chloride 103, Carbon Dioxide 25.0, Anion Gap 8, BUN 15, Creatinine 1.13, Est GFR (MDRD) Af Amer 84, Est GFR (MDRD) Non-Af 69, BUN/Creatinine Ratio 13.3, Glucose 129 H, Calcium 8.0 L Rhythm: EKG: ECHO: Stress Test: Cardiac Cath: PCI: CT Surgery: Holter monitor: EPS: PPM: CXR: Chest CT Scan: Radiography Diagnostic Testing: Radiology Impression Transesophageal Echocardiogram 06/02/22 08:00 Interpretation Summary Normal LV size. Left ventricular systolic function is normal. The estimated ejection fraction is 60 %. The base and atrioventricular junction appear to be thickened but no mass is noted suggestive of myxoma. Bubble contrast study negative for right to left interatrial shunt. No thrombus is detected in the left atrial appendage. The previous structure identified in the right atrium was likely from acoustic shadowing. No myxoma is identified. Ordering Physician: Matthew Stein Referring Physician: Yevgeniy Kimball Performed By: Lynnette Stevens RDCS Physical Exam Const alert, oriented x3 and no apparent distress General Appearance: cooperative HEENT hearing grossly normal bilaterally Head and Scalp: atraumatic Eyes EOMs intact bilaterally Neck General: normal visual inspection Chest inspection of chest normal and palpation of chest normal Resp normal respiratory effort Auscultation: clear to auscultation bilaterally Cardio S1 normal heart sound and S2 normal heart sound Jugular Venous Distention: JVD Rhythm: abnormal rhythm GI normal to inspection, nondistended, normoactive bowel sounds Extremity normal capillary refill and no pedal edema Peripheral Pulses: Yes pulses 2+ throughout and femoral pulses present Skin no rashes or lesions noted Neuro oriented x3 and CN's II-XII intact bilaterally Psych Appearance: grossly normal and appropriate Assessment & Plan Assessment/Plan (1) Atrial fibrillation: PLAN: He does have evidence of atrial fibrillation which appears to be fairly new onset. The exact duration is unclear at this time. However due to his age and hypertension I would recommend that his [id number] score is elevated enough he needs to be anticoagulated long-term. * Ventricular response rate is controlled on account of his beta-blockade. This will be continued. * He will be brought back at some point for DC cardioversion after he has been anticoagulated uninterrupted for at least 3 weeks. (2) Acute CHF: PLAN: He did present with acute shortness of breath likely secondary to heart failure with preserved ejection fraction. He was noted to be markedly hypertensive as well as in atrial fibrillation and both of these could have contributed to his symptomatology. We will continue to aggressively diurese him We will continue beta-oksana Continue ARB (3) Hypertensive emergency: PLAN: He did present with hypertensive emergency. My recommendation is to continue the current medical therapy and get his blood pressure under better control. (4) Myxoma: PLAN: He has been noted to have a mass in the left atrium and he had a ZAHRAA performed this morning which did not confirm any such mass. 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 No further therapy is recommended. Thank you for allowing me to participate in the care of your patient. Please don't hesitate to call if any issues arise. (5) CAD (coronary artery disease) of artery bypass graft: PLAN: He does have a history of coronary artery disease status post coronary bypass surgery remotely. He underwent cardiac catheterization today which demonstrated the following: Normal left main coronary artery. Left anterior descending artery with severe disease noted in the midsegment. Left circumflex artery with severe proximal disease. Right coronary artery with moderate diffuse disease. Saphenous vein graft to right coronary artery which is patent. Saphenous vein graft to the diagonal vessel which is patent. Saphenous vein graft to the left circumflex artery which is patent. No other grafts were noted. Preserved left ventricular systolic function. Based on the above angiographic findings would recommend medical therapy. Thank you for allowing me to participate in the care of your patient. Please don't hesitate to call if any issues arise.
--- NOTE | 2022-06-03 07:51 | DCINST_ITS ---
Discharge Instructions Diet Discharge Diet: Low fat / Low cholesterol and 2000 mg Sodium Diet Activity Discharge Activity: Return to Normal Activity Follow Up Care Test Results: Test results from this visit will be discussed in further detail at your follow- up appointment, if applicable. Discharge Plan Admission Admit Date/Time: 06/01/22 07:12 Primary Reason for Your Visit: Acute flash pulmonary edema/A. fib Attending Provider: Marifer Barton Primary Care Provider: Yevgeniy Kimball DRUM PLATER Consulting Providers: Macey Pruett ; Pedro Dong ; Tr Haskins ; Laura Boo ; Matthew Stein ; Yanick Araya ; Kentrell Duarte ; Yvette Barnes ; Sloan Vanegas ; Erica Loza ; Hieu Owen ; Richard Ramos ; Francisco J Forrest ; To Flynn ; Mitchel Yen DRUM PLATER ; Macey Green DRUM PLATER ; Sandra Robledo PA Instructions Additional Instructions / Restrictions: Take note of changes to your medications Follow a low-fat, low-salt diet Follow-up with your primary care doctor within 1 week Follow-up with cardiology within 2 to 4 weeks Discharge Orders/Prescriptions Prescriptions: New metoprolol succinate 50 mg Tablet Extended Release 24 Hr 50 mg PO DAILY 30 Days Qty: 30 0RF amlodipine 10 mg Tablet 10 mg PO DAILY 30 Days Qty: 30 0RF aspirin 81 mg Tablet,Chewable 81 mg PO BREAKFAST 30 Days Qty: 30 0RF Eliquis 5 mg Tablet 5 mg PO BID 30 Days Qty: 60 0RF furosemide 40 mg Tablet 40 mg PO DAILY 30 Days Qty: 30 0RF nicotine 21 mg/24 hr Patch 24 Hour 21 mg transdermal DAILY 28 Days Qty: 28 0RF nicotine (polacrilex) 4 mg Gum 4 mg PO Q2H PRN PRN (Reason: Nicotine Craving) 30 Days Qty: 110 0RF Continued atorvastatin 40 mg tablet 40 mg PO DAILY pantoprazole 40 mg tablet,delayed release (DR/EC) 40 mg PO DAILY losartan 100 mg tablet 100 mg PO DAILY ezetimibe 10 mg tablet 10 mg PO DAILY Discontinued metoprolol succinate 100 mg tablet extended release 24 hr 100 mg PO DAILY amlodipine 5 mg tablet 5 mg PO DAILY aspirin 325 mg Tablet 325 mg PO DAILY Referrals / Follow Up: Yevgeniy Kimball DRUM PLATER, DRUM PLATER-C [Primary Care Provider] - In 1 Week Matthew Stein MD [Med Staff - Active Staff] - Within 1 Month Disposition Disposition (needs filled in before D/C Order can be placed): Home, Self Care
[2022-06-03 07:58] VITALS: BP 143/81; PULSE 77; RESP 16; TEMP 36.6; O2SAT 95
[2022-06-03] MEDS: Ezetimibe 10 MG Tablet PO (08:02)
[2022-06-03] MEDS: Atorvastatin Calcium 40 MG Tablet PO (08:02)
[2022-06-03] MEDS: APIXABAN 5 MG TABLET PO (08:02)
[2022-06-03] MEDS: Pantoprazole Sodium 40 MG Tablet PO (08:02)
[2022-06-03 08:03] VITALS: BP 143/81; PULSE 77
[2022-06-03] MEDS: Aspirin 81 MG TAB.CHEW PO (08:03)
[2022-06-03] MEDS: Losartan Potassium 100 MG Tablet PO (08:03)
[2022-06-03] MEDS: amLODIPine 10 MG Tablet PO (08:03)
[2022-06-03] MEDS: Metoprolol(XL)Succ 50 MG Tablet PO (08:03)
[2022-06-03] MEDS: Furosemide 40 MG Tablet PO (08:04)
--- NOTE | 2022-06-03 09:57 | CASEMGMT ---
Addendum entered by Gunjan Rock 06/03/22 10:37: Call back to [facility] and per pharmacist, pt's co-pay is $9.85. Pt updated and provided with Eliquis 30 day free trial card. Pt voices no further questions/concerns/needs. Lupis LEVY CM Original Note: Attempt to call [facility] to check Eliquis co-pay but per pharmacist, they are still working on scripts and asks for this RN CM to call back at a later time. CM to follow. Lupis LEVY CM
[2022-06-03] MEDS: FLU VACC QS2022-23(6MOS UP)/PF 60 MCG/0.5 ML SYRINGE IM (11:02)
--- NOTE | 2022-06-03 15:49 | DS.PCM_ITS ---
Providers Date of Admission: 06/01/22 Date of Discharge: 06/03/22 Primary Care Physician: Yevgeniy Kimball, SAADIA-Mikey Consultations 06/01/22 13:48 Consult: Cardiology Routine Consulting Provider: Mel May Reason for Consult: Flash pulmonary edema EMERGENT Consult: No MD Notified: Yes Date Notified: 06/01/22 Time Notified: 13:59 Method of Notification: Text Reason For Visit: FLASH PULMONARY EDEMA Diagnosis Discharge Diagnosis (1) Atrial fibrillation: Status: Acute Code(s): I48.91 - Unspecified atrial fibrillation (2) Acute CHF: Status: Acute Code(s): I50.9 - Heart failure, unspecified (3) Hypertensive emergency: Status: Acute Code(s): I16.1 - Hypertensive emergency (4) Myxoma: Status: Acute Code(s): D21.9 - Benign neoplasm of connective and other soft tissue, unspecified (5) CAD (coronary artery disease) of artery bypass graft: Status: Acute Code(s): I25.810 - Atherosclerosis of coronary artery bypass graft(s) without angina p ectoris Plan 1. Acute hypoxic respiratory failure secondary to acute flash pulmonary edema 2. Hypertensive emergency 3. Atrial fibrillation, newly diagnosed, CHADS-VASC2 score is 3 4. Nicotine dependence 5. Hyperlipidemia 6. Acute flash pulmonary edema, probable acute heart failure with preserved EF, EF 55% 7. Abnormal echo, findings suggestive of left atrial myxoma Medications at Discharge Home Medications atorvastatin 40 mg tablet 40 mg PO DAILY cholesterol 06/01/22 ezetimibe 10 mg tablet 10 mg PO DAILY cholesterol 06/01/22 losartan 100 mg tablet 100 mg PO DAILY blood pressure 06/01/22 pantoprazole 40 mg tablet,delayed release 40 mg PO DAILY GERD 06/01/22 amlodipine 10 mg tablet 10 mg PO DAILY 30 days #30 tabs 06/03/22 apixaban 5 mg tablet (Eliquis) 5 mg PO BID 30 days #60 tabs 06/03/22 aspirin 81 mg chewable tablet 81 mg PO BREAKFAST 30 days #30 tabs 06/03/22 furosemide 40 mg tablet 40 mg PO DAILY 30 days #30 tabs 06/03/22 metoprolol succinate 50 mg tablet,extended release 24 hr 50 mg PO DAILY 30 days #30 tabs 06/03/22 nicotine (polacrilex) 4 mg gum 4 mg PO Q2H PRN PRN Nicotine Craving 30 days #110 ea 06/03/22 nicotine 21 mg/24 hr daily transdermal patch 21 mg transdermal DAILY 28 days #28 ea 06/03/22 Hospital Course Operations None Procedures None Summary of Care Provided Minutes Spent on Discharge: 40 Hospital Course: 66-year-old with past medical history of CAD status post CABG, hypertension, GERD, chronic smoker who comes in with shortness of breath that happened a few hours before admission. Patient's blood pressure was 229/104 in the emergency room. He was saturating 88% on room air. He was found to be in severe respiratory distress. He was managed on BiPAP, IV Lasix and IV labetalol. His blood pressure improved. He was admitted to the progressive care unit and managed as acute hypoxic respiratory failure secondary to acute flash pulmonary edema with hypertensive emergency. He also had atrial fibrillation which appeared to be newly diagnosed. His troponins were unremarkable. Patient had 2D echo done that showed EF of 55% and echo findings concerning for a left atrial myxoma. Patient underwent ZAHRAA that did not show any mass suggestive of myxoma. He subsequent underwent cardiac catheterization that showed severe [place] coronary disease with patent saphenous vein bypass grafts noted to the obtuse marginal branch and posterior descending artery. Patient was discharged home on Eliquis for A. fib, Lasix 40 mg daily, aspirin, losartan. He was strongly advised to follow-up with his primary care doctor within 1 week. Physical Exam Narrative Physical exam: General: Alert, Oriented x3, Cooperative, comfortable on room air HEENT: Atraumatic Oral: Moist Mucosa Neck: Supple Lungs: Diminished to auscultation Cardiovascular: HS I+II, regular, no murmurs Abdomen: Bowel Sounds Present, Soft, Non Tender Extremities: Bilateral leg edema, trace Skin: No rashes, No breakdown Neurological: Grossly intact Psych/Mental Status: Appropriate Weight / BMI Weight Weight: 113.5 kg Body Mass Index (BMI) 33.7 ABG / Lab / Microbiology Data Result Diagrams: 06/03/22 05:23 06/03/22 05:23 Laboratory: Laboratory Results - last 24 hr 06/03/22 05:23: WBC 8.5, RBC 5.21, Hgb 15.2, Hct 43.8, MCV 84.1, MCH 29.2, MCHC 34.7, RDW Std Deviation 40.6, RDW Coeff of Jorge 13.2, Plt Count 206, MPV 9.8 06/03/22 05:23: PT 14.3, INR 1.1, APTT 28.3 06/03/22 05:23: Sodium 136, Potassium 3.6, Chloride 103, Carbon Dioxide 25.0, Anion Gap 8, BUN 15, Creatinine 1.13, Estim Creat Clear Calc 73.65, Est GFR (MDRD) Af Amer 84, Est GFR (MDRD) Non-Af 69, BUN/Creatinine Ratio 13.3, Glucose 129 H, Calcium 8.0 L Microbiology: Microbiology 06/01/22 06:17 Nasal Secretion SARS-CoV-2 & FLU Antigen (Rapid) - Final D/C Instructions Discharge Diet: Low fat / Low cholesterol and 2000 mg Sodium Diet Meaningful Use Info Meaningful Use Diagnoses (Choose all that apply): CHF CHF REKHA/ARB ordered at discharge?: Yes Documented LVEF (%): 55 Discharge Plan Admission Admit Date/Time: 06/01/22 07:12 Primary Reason for Your Visit: Acute flash pulmonary edema/A. fib Attending Provider: Marifer Barton Primary Care Provider: Yevgeniy Kimball NP Consulting Providers: Macey Pruett ; Pedro Dong ; Tr Haskins ; Laura Boo ; Matthew Stein ; Yanick Araya ; Kentrell Duarte ; Yvette Barnes ; Sloan Vanegas ; Donta Loza ; Hieu Owen ; Richard Ramos ; Francisco J Forrest ; Gerardo Flynn ; Mitchel Yen NP ; Macey Green NP ; Sandra Robledo PA Instructions Additional Instructions / Restrictions: Take note of changes to your medications Follow a low-fat, low-salt diet Follow-up with your primary care doctor within 1 week Follow-up with cardiology within 2 to 4 weeks Discharge Orders/Prescriptions Prescriptions: New metoprolol succinate 50 mg Tablet Extended Release 24 Hr 50 mg PO DAILY 30 Days Qty: 30 0RF amlodipine 10 mg Tablet 10 mg PO DAILY 30 Days Qty: 30 0RF aspirin 81 mg Tablet,Chewable 81 mg PO BREAKFAST 30 Days Qty: 30 0RF Eliquis 5 mg Tablet 5 mg PO BID 30 Days Qty: 60 0RF furosemide 40 mg Tablet 40 mg PO DAILY 30 Days Qty: 30 0RF nicotine 21 mg/24 hr Patch 24 Hour 21 mg transdermal DAILY 28 Days Qty: 28 0RF nicotine (polacrilex) 4 mg Gum 4 mg PO Q2H PRN PRN (Reason: Nicotine Craving) 30 Days Qty: 110 0RF Continued atorvastatin 40 mg tablet 40 mg PO DAILY pantoprazole 40 mg tablet,delayed release (DR/EC) 40 mg PO DAILY losartan 100 mg tablet 100 mg PO DAILY ezetimibe 10 mg tablet 10 mg PO DAILY Discontinued metoprolol succinate 100 mg tablet extended release 24 hr 100 mg PO DAILY amlodipine 5 mg tablet 5 mg PO DAILY aspirin 325 mg Tablet 325 mg PO DAILY Referrals / Follow Up: Matthew Stein MD [Med Staff - Active Staff] - Within 1 Month Yevgeniy Kimball NP, FAMILY INDEPENDENCE CASE MANAGER-C [Primary Care Provider] - In 1 Week Disposition Disposition (needs filled in before D/C Order can be placed): Home, Self Care Charges/Coding Visit Charges Inpatient E&M: 50950 Disch Hosp
== END 2022-06-03 11:46 | disposition home or self-care (01) | DRG 286 ==
LOC: ED 06:56 → PCU 07:42
PROVIDERS: Internal Medicine Cardiovascular Disease; Admitting Provider Internal Medicine; Emergency Provider Emergency Medicine; PCP Nurse Practitioner Family; Visit Provider Internal Medicine
DX: I11.0 Hypertensive heart disease with heart failure (principal); J81.0 Acute pulmonary edema; J96.01 Acute respiratory failure with hypoxia; I50.31 Acute diastolic (congestive) heart failure; I16.1 Hypertensive emergency; I48.91 Unspecified atrial fibrillation; F17.210 Nicotine dependence, cigarettes, uncomplicated; E83.42 Hypomagnesemia; E78.5 Hyperlipidemia, unspecified; I25.10 Atherosclerotic heart disease of native coronary artery without angina pectoris; K21.9 Gastro-esophageal reflux disease without esophagitis; I25.2 Old myocardial infarction; D21.9 Benign neoplasm of connective and other soft tissue, unspecified; Z20.822 Contact with and (suspected) exposure to COVID-19; Z23 Encounter for immunization; Z79.82 Long term (current) use of aspirin; Z79.899 Other long term (current) drug therapy; Z95.1 Presence of aortocoronary bypass graft
CPT/HCPCS: 36415; 71045; 80048; 80053; 80061; 80076; 83036; 83735; 83880; 84443; 84484; 85025; 85027; 85610; 85730; 87428; 93005; 93306; 93312; 93320; 93325; 93455; 93567; 94002; 94640; 97802; 99152; 99153; 99251; 99285; 99406; G0008; J7030; Q9957; 90686; A4216; C1769; C8929; G0463; J1940

== ENCOUNTER → 2022-08-12 | Outpatient (CLI) | payer MEDICAID, MEDICARE, SELFPAY ==
[2022-08-12 12:21] LABS: Hematocrit 45.6 % (40-54); Hemoglobin 15.1 g/dL (13.0-16.5); Mean Corp Hgb Conc 33.1 g/dL (32-36); Mean Corpuscular Hgb 28.4 pg (27.0-32.0); Mean Corpuscular Volume 85.7 fL (80-94); Mean Platelet Vol. 9.8 fl (6.2-12.0); Platelet Count 258 K/mm3 (150-450); RBC Distribution Width CV 13.2 % (11.6-14.6); RBC Distribution Width SD 40.7 fl (35.1-43.9); Red Blood Count 5.32 M/mm3 (4.6-6.2); White Blood Count 8.4 K/mm3 (4.4-11.0)
[2022-08-12 12:50] LABS: ALB/GLOB Ratio 0.9 RATIO (0.9-2.4); AST(SGOT) 20 U/L (15-37); Alanine Aminotransfer ALT/SGPT 27 U/L (16-61); Albumin, Serum 3.8 g/dL (3.2-5.0); Alkaline Phosphatase 111 U/L (45-117); Anion Gap 6 (5-15); BUN 17 mg/dL (7-18); BUN/Creat Ratio 14.3 RATIO (10-20); Calcium,Total 8.4 mg/dL (8.5-10.1); Chloride 102 mmol/L (98-107); Cholesterol 123 mg/dL (200); Creatinine, Serum 1.19 mg/dL (0.70-1.30); EST Glomerular Filtration Rate 65 mL/min (>60); Est Glom Filt Rate - Afr Amer 79 mL/min (>60); Globulin 4.1 g/dL (2.2-4.2); Glucose 114 mg/dL (74-106); High Density Lipoprotein 39 mg/dL; Potassium 3.5 mmol/L (3.5-5.1); Protein, Total 7.9 g/dL (6.4-8.2); Sodium Level 138 mmol/L (136-145); Triglycerides 150 mg/dL; Very Low Density Lipoprotein 30 mg/dL (5-40)
[2022-08-12 12:52] LABS: Hemoglobin A1c 6.2 % (3.8-5.6)
== END | disposition home or self-care (01) ==
LOC: LAB 11:21
PROVIDERS: PCP Nurse Practitioner Family; Referring Provider Nurse Practitioner Family; Visit Provider Nurse Practitioner Family
DX: E11.9 Type 2 diabetes mellitus without complications (principal); I10 Essential (primary) hypertension; N28.9 Disorder of kidney and ureter, unspecified; E78.5 Hyperlipidemia, unspecified; I25.10 Atherosclerotic heart disease of native coronary artery without angina pectoris
CPT/HCPCS: 36415; 80053; 80061; 83036; 84443; 85027

== ENCOUNTER → 2023-02-17 | Outpatient (CLI) | payer MEDICARE, MEDICAID, SELFPAY ==
[2023-02-17 10:06] LABS: Hematocrit 37.2 % (40-54); Hemoglobin 12.9 g/dL (13.0-16.5); Mean Corp Hgb Conc 34.7 g/dL (32-36); Mean Corpuscular Hgb 28.4 pg (27.0-32.0); Mean Corpuscular Volume 81.9 fL (80-94); Mean Platelet Vol. 10.1 fl (6.2-12.0); Platelet Count 238 K/mm3 (150-450); RBC Distribution Width CV 13.1 % (11.6-14.6); Red Blood Count 4.54 M/mm3 (4.6-6.2); White Blood Count 7.3 K/mm3 (4.4-11.0)
[2023-02-17 11:08] LABS: Hemoglobin A1c 6.4 % (3.8-5.6)
[2023-02-17 11:29] LABS: ALB/GLOB Ratio 0.9 RATIO (0.9-2.4); AST(SGOT) 22 U/L (15-37); Alanine Aminotransfer ALT/SGPT 24 U/L (16-61); Albumin, Serum 3.6 g/dL (3.2-5.0); Alkaline Phosphatase 102 U/L (45-117); Anion Gap 11 (5-15); BUN 48 mg/dL (7-18); BUN/Creat Ratio 24.5 RATIO (10-20); Calcium,Total 6.2 mg/dL (8.5-10.1); Chloride 102 mmol/L (98-107); Cholesterol 103 mg/dL (200); Creatinine, Serum 1.96 mg/dL (0.70-1.30); EST Glomerular Filtration Rate 37 mL/min (>60); Est Glom Filt Rate - Afr Amer 44 mL/min (>60); Glucose 133 mg/dL (74-106); High Density Lipoprotein 29 mg/dL; PSA,Total- Diagnostic 2.24 ng/mL (0.0-4.0); Potassium 3.4 mmol/L (3.5-5.1); Protein, Total 7.6 g/dL (6.4-8.2); Sodium Level 135 mmol/L (136-145); Triglycerides 205 mg/dL; Very Low Density Lipoprotein 41 mg/dL (5-40)
== END | disposition home or self-care (01) ==
LOC: LAB 09:01
PROVIDERS: PCP Nurse Practitioner Family; Referring Provider Nurse Practitioner Family; Visit Provider Nurse Practitioner Family
DX: I10 Essential (primary) hypertension (principal); E11.9 Type 2 diabetes mellitus without complications; E78.5 Hyperlipidemia, unspecified; N28.9 Disorder of kidney and ureter, unspecified; E78.1 Pure hyperglyceridemia; E78.6 Lipoprotein deficiency; I25.10 Atherosclerotic heart disease of native coronary artery without angina pectoris; N40.0 Benign prostatic hyperplasia without lower urinary tract symptoms
CPT/HCPCS: 36415; 80053; 80061; 82043; 83036; 84153; 85027

== ENCOUNTER → 2023-02-18 | Outpatient (CLI) | payer MEDICARE, MEDICAID, SELFPAY ==
[2023-02-18 10:39] LABS: Ionized Calcium 3.59 mg/dL (4.36-5.20)
[2023-02-18 11:10] LABS: PTHIN 76.3 pg/mL (18.4-80.1)
[2023-02-18 11:14] LABS: Vitamin D,25 Hydroxy 33.9 ng/mL
[2023-02-18 11:34] LABS: Magnesium 0.5 mg/dL (1.6-2.6)
== END | disposition home or self-care (01) ==
PROVIDERS: PCP Nurse Practitioner Family; Referring Provider Nurse Practitioner Family; Visit Provider Nurse Practitioner Family
DX: E83.51 Hypocalcemia (principal); E11.9 Type 2 diabetes mellitus without complications; I10 Essential (primary) hypertension; N28.9 Disorder of kidney and ureter, unspecified
CPT/HCPCS: 36415; 82306; 82330; 83735; 83970

== ENCOUNTER 2023-03-20 20:13 | Inpatient (IN) | payer MEDICARE, MEDICAID, SELFPAY ==
[2023-03-20 19:53] VITALS: BP 132/53; PULSE 108; RESP 18; TEMP 36.7; O2SAT 94
--- NOTE | 2023-03-20 20:10 | HP.PCM.HOS_ITS ---
HPI - General General Date of Admission: 03/20/23 Date of Service: 03/20/23 Chief Complaint: N/V/D HPI Narrative The patient is a 67 y/o M w/ PMHx: PAF, CAD s/p STEMI s/p CABG, HTN, hLD, GERD, Tobacco use, Diastolic CHF who presents to the [facility] on 03/20/23 as a direct admission from [facility] ED with history of several days of loose days followed by onset yesterday early afternoon intractable nausea and emesis with chills but only following bouts of emesis and no fever with no recent ill contacts or alteration to his foods with last stool yesterday am noted to be again loose prompting eventual OSH ED evaluation as noted with eventual work-up notable for SCARLETT with requested transfer to [facility] for continued evaluation and care. Patient does report abdominal cramping and mild discomfort with onset of intractable nausea and emesis and diarrhea but is not severe. Work-up at the OSH ED included: VS: T 36.5, HR 98, RR 18, BP 114/78, O2 94% on RA CBC w/ WBC 12, Hgb 14.6, Plts 256 with no shift CMP w/ Na 138, K 4.7, CO2 19, 60/4.03, hepatic profile not marked appearing Lipase 104 Troponin 31.2 Medications: 1L NS bolus, zofran 4 mg IV x 1 and pepcid 20 mg x 1. [facility] Medical History Atherosclerosis of coronary artery without angina pectoris Diastolic CHF GERD (gastroesophageal reflux disease) Hyperlipidemia Hypertension PAF (paroxysmal atrial fibrillation) Smoker STEMI (ST elevation myocardial infarction) Home Medications aspirin 81 mg chewable tablet 81 mg PO BREAKFAST heart health #30 tabs 06/04/22 [Rx Last Taken 03/19/23 09:00] amlodipine 10 mg tablet 10 mg PO DAILY blood pressure #90 tabs 06/05/22 [Rx Last Taken 03/19/23 09:00] ezetimibe 10 mg tablet 10 mg PO DAILY cholesterol #90 tabs 06/05/22 [Rx Last Taken 03/19/23] pantoprazole 40 mg tablet,delayed release 40 mg PO DAILY GERD #90 tabs 06/05/22 [Rx Last Taken 03/19/23 09:00] metoprolol succinate 50 mg tablet,extended release 24 hr 50 mg PO DAILY DOSE DECRESED FROM 100 mg to 50 mg a day! #90 tabs 06/12/22 [Rx Last Taken 03/19/23 09:00] doxazosin 2 mg tablet (Cardura) 2 mg PO DAILY heart #30 tabs 07/27/22 [Rx Last Taken 03/19/23 09:00] hydrochlorothiazide 25 mg tablet 25 mg PO DAILY BP #30 tabs 07/27/22 [Rx Last Taken Unknown] atorvastatin 40 mg tablet 40 mg PO DAILY cholesterol #90 tabs 10/30/22 [Rx Last Taken 03/19/23 09:00] losartan 100 mg tablet 100 mg PO DAILY blood pressure #90 tabs 10/30/22 [Rx Last Taken 03/19/23 09:00] apixaban 5 mg tablet (Eliquis) 5 mg PO BID blood thinner #90 tabs 11/23/22 [Rx Last Taken 03/19/23 09:00] Allergy/AdvReac Type Severity Reaction Status Date / Time No Known Allergies Allergy Verified 03/20/23 20:33 Family History adopted adopted (Does not know his biological maternal/paternal family history.) Surgical History H/O coronary artery bypass surgery Social History household members: children housing: apartment Smoking Status: Current every day smoker tobacco type: cigarettes alcohol intake: current substance use type: does not use ROS ROS Narrative Admission Review of Systems: CONSTITUTIONAL: No weight loss, fever, + chills, weakness or fatigue. HEENT: Eyes: No visual loss, blurred vision, double vision or yellow sclerae. Ears, Nose, Throat: No hearing loss, sneezing, congestion, runny nose or sore throat. SKIN: No rash or itching, lesions, wounds. CARDIOVASCULAR: No chest pain, chest pressure or chest discomfort, palpitations, edema, orthopnea, syncopal events. RESPIRATORY: No shortness of breath, cough or sputum, wheezing, hemoptysis. GASTROINTESTINAL: + anorexia, nausea, vomiting, diarrhea, abdominal cramping, No melena, BRBPR. GENITOURINARY: No dysuria, frequency, urgency or retention. NEUROLOGICAL: No headache, dizziness, syncope, paralysis, ataxia, numbness or tingling in the extremities, focal weakness, change in bowel or bladder control, seizure. MUSCULOSKELETAL: + muscle, back pain, joint pain or stiffness. HEMATOLOGIC: + Hx anemia, easy bleeding or bruising. LYMPHATICS: No enlarged nodes. No history of splenectomy. PSYCHIATRIC: No history of depression or anxiety. ENDOCRINOLOGIC: No reports of sweating, cold or heat intolerance. No polyuria or polydipsia. ALLERGIES: No history of asthma, hives, eczema or rhinitis. Vital Signs Vital Signs Vital Signs: 03/20/23 19:53 Temperature 98.0 F Temperature Source Oral Pulse Rate 108 H Respiratory Rate 18 Blood Pressure 132/53 H Blood Pressure Mean 79 Blood Pressure Source Monitor Blood Pressure Position Semi-Fowlers Blood Pressure Location Right Arm Pulse Ox 94 Oxygen Delivery Method Room Air Physical Exam Narrative Physical Examination: General: Awake, alert, oriented x 3 and cooperative, laying in the medical [facility] gical bed, fatigued, holding emesis bag. Skin: Normal color, normal turgor, no icterus, no cyanosis. HEENT: AT/NC, EOMI, PERRLA, dry MM, no carotid bruits or JVD noted. Lungs: Diminished, greater bases, proper effort, no rales, ronchi or wheezing. Heart: Mildly tachycardic with regular rhythm; no gallop, rub audible. Abdomen: Soft, mild generalized discomfort with palpation but no rebound or guar ding, no marked distention, mildly hyperactive BS, no obvious HSM. Extremities: No cyanosis, clubbing, or edema. Neurological: Patient awake, alert, oriented as noted, cognitive function intact; pupils equally reactive to light and accommodation, cranial nerves II- XII grossly normal, moving all 4 extremities, no focal deficits, strength moderately globally decreased secondary to acute presentation. Psychiatric: Affect appears flat, fatigued, no acute evidence of depressive or anxiety feelings. Assessment & Plan Assessment/Plan (1) Acute gastroenteritis: PLAN: Plan The patient is a 67 y/o M w/ PMHx: PAF, CAD s/p STEMI s/p CABG, HTN, hLD, GERD, Tobacco use, Diastolic CHF who presents to the [facility] on 03/20/23 as a direct admission from [facility] ED with history of several days of loose days followed by onset yesterday early afternoon intractable nausea and emesis with chills but only following bouts of emesis and no fever with no recent ill contacts or alteration to his foods with last stool yesterday am noted to be again loose prompting eventual OSH ED evaluation as noted with eventual work-up notable for SCARLETT with requested transfer to [facility] for continued evaluation and care. #1. N/V/D, Suspected Acute Gastroenteritis: Will admit to medical surgical floor, will continue judicious hydration given underlying CHF history and previous overload, will obtain viral panel as well as assessment of stools w/ c diff, stool cx with repeat AM CBC, will continue to correct electrolytes as noted, PRN anti-emetics, allow clears and ADAT, IV PPI until assure improving with stable oral intake. #2. Acute kidney injury: Secondary to #1 as noted GI losses, admission BUN/Cr 60/4.03, prior baseline creatinine noted to be 1.0-1.2. Will hydrate, hold nephrotoxic medications and repeat chemistry in AM. If no improvement would plan FeNa and renal assessment. UA requested. #3. CAD: Status post previous STEMI and CABG, will continue aspirin, apixaban, statin therapy, metoprolol, holding losartan given acute kidney injury with resumption once appropriate. #4. Hypertension: Continue home regimen including metoprolol, cardura with old parameters, holding HCTZ and losartan given SCARLETT, resume once appropriate, PRN hydralazine. #5. Hyperlipidemia: We will continue patient on statin therapy. #6. Tobacco Abuse: Encouraged cessation, inpatient consultation per RT, NR if desired. #7. GERD: We will continue patient on PPI. #8. DVT prophylaxis: We will continue patient home apixaban regimen temporally altered given acute renal injury. Charges/Coding Visit Charges Inpatient E&M: 89427 Init Hosp L3
[2023-03-20 20:43] VITALS: BMI 29.6
[2023-03-20] MEDS: 0.9% Normal Saline 1,000 ML 100 ML IV (20:58)
[2023-03-20] MEDS: proCHLORPERazine 10 MG/2 ML Vial 5 MG IV (20:58)
[2023-03-20 21:07] LABS: Magnesium 0.3 mg/dL (1.6-2.6)
[2023-03-20 21:14] VITALS: O2SAT 96
[2023-03-20] MEDS: Magnesium Sulfate 4gm/100mL 4 GM/100 ML IV.SOLN. IV (22:04)
[2023-03-20] MEDS: APIXABAN 2.5 MG TABLET (WCH) PO (23:01)
[2023-03-20] MEDS: 0.9% Saline Lock 10 ML Syringe IV (23:07)
[2023-03-20] MEDS: MELATONIN 3 MG TABLET PO (23:07)
[2023-03-21] VITALS (7 sets, daily range): BP systolic 107–144; BP diastolic 53–74; PULSE 71–105; RESP 16–18; TEMP 36.8–37.2; O2SAT 95–97; BMI 30.4
[2023-03-21 00:13] LABS: Bedside Glucose 175 mg/dL (74-106)
[2023-03-21 02:38] LABS: Absolute Lymphocyte Count 0.89 X10^3/uL (0.83-4.51); Absolute Neutrophil Count 12.1 X10^3/uL (2.0-7.7); Basophil# 0.02 X10^3/uL; Basophil% 0.1 % (0-1); Eosinophil# 0.01 X10^3/uL; Eosinophils% 0.1 % (0-5); Hematocrit 39.9 % (40-54); Hemoglobin 13.9 g/dL (13.0-16.5); Lymphocyte # 0.89 X10^3/ul (0.83-4.51); Lymphocyte % 6.5 % (19-41); Mean Corp Hgb Conc 34.8 g/dL (32-36); Mean Corpuscular Hgb 28.8 pg (27.0-32.0); Mean Corpuscular Volume 82.8 fL (80-94); Monocyte# 0.58 X10^3/uL; Monocyte% 4.2 % (0-10); NRBC Flagged by Analyzer 0 % (0-5); Neutrophil # 12.11 X10^3/uL (2.7-7.7); Neutrophil % 88.7 % (47-70); Platelet Count 248 K/mm3 (150-450); RBC Distribution Width CV 13.6 % (11.6-14.6); RBC Distribution Width SD 40.9 fl (35.1-43.9); Red Blood Count 4.82 M/mm3 (4.6-6.2); White Blood Count 13.7 K/mm3 (4.4-11.0)
[2023-03-21 03:01] LABS: Magnesium 1.7 mg/dL (1.6-2.6)
[2023-03-21 03:37] LABS: ALB/GLOB Ratio 1.1 RATIO (0.9-2.4); AST(SGOT) 28 U/L (15-37); Alanine Aminotransfer ALT/SGPT 59 U/L (16-61); Albumin, Serum 4.2 g/dL (3.2-5.0); Alkaline Phosphatase 101 U/L (45-117); Anion Gap 20 (5-15); BUN 61 mg/dL (7-18); BUN/Creat Ratio 16.7 RATIO (10-20); Chloride 102 mmol/L (98-107); Creatinine, Serum 3.65 mg/dL (0.70-1.30); EST Glomerular Filtration Rate 18 mL/min (>60); Est Glom Filt Rate - Afr Amer 22 mL/min (>60); Estimated Creatinine Clearance 21.85 ml/min; Globulin 3.8 g/dL (2.2-4.2); Glucose 173 mg/dL (74-106); Potassium 3.9 mmol/L (3.5-5.1); Sodium Level 137 mmol/L (136-145)
--- NOTE | 2023-03-21 04:09 | PCM.HOSP.N ---
Hospitalist Note Calcium 6, corrected even lower. In order to administer Ca++ as needed will need to transfer. Will administer to start IV Ca Cluconate 1000mg IV over 1 hr x 2 doses and then recheck Ca level 1 hr after infusion completed.
[2023-03-21 04:59] LABS: Mucous, Urine 0 SEEN /hpf (<or=2+); Red Blood Cells-Urine 0 SEEN /hpf (0-5); Squamous Epithelial Cells - UA 0 SEEN /hpf (0-5); White Blood Cells 0 SEEN /hpf (0-5)
[2023-03-21 05:01] LABS: Color, Urine Yellow (Yellow); Glucose, Dipstick Normal (Normal); Ketone-Dipstick 5 mg/dl (Negative); Leukocyte Esterase-Dipstick Negative /ul (Negative); Nitrite-Dipstick Negative (Negative); Occult Blood-Urine Negative /ul (Negative); Protein-Dipstick 15 mg/dl (Negative); Urine Bilirubin Dipstick Negative (Negative); Urine Clarity Clear (Clear); Urine Urobilinogen Normal (Normal)
[2023-03-21 06:03] LABS: Bacteria RARE /hpf (None Seen); Hyaline Cast 0-5 SEEN /lpf (0-5)
[2023-03-21 07:17] LABS: Absolute Lymphocyte Count 1.03 X10^3/uL (0.83-4.51); Absolute Neutrophil Count 8.5 X10^3/uL (2.0-7.7); Basophil# 0.02 X10^3/uL; Basophil% 0.2 % (0-1); Hematocrit 36.3 % (40-54); Hemoglobin 12.9 g/dL (13.0-16.5); Lymphocyte # 1.03 X10^3/ul (0.83-4.51); Lymphocyte % 9.6 % (19-41); Mean Corp Hgb Conc 35.5 g/dL (32-36); Mean Corpuscular Hgb 29.5 pg (27.0-32.0); Mean Corpuscular Volume 83.1 fL (80-94); Monocyte# 1.11 X10^3/uL; Monocyte% 10.4 % (0-10); NRBC Flagged by Analyzer 0 % (0-5); Neutrophil # 8.48 X10^3/uL (2.7-7.7); Neutrophil % 79.1 % (47-70); Platelet Count 222 K/mm3 (150-450); RBC Distribution Width CV 13.7 % (11.6-14.6); RBC Distribution Width SD 41.7 fl (35.1-43.9); Red Blood Count 4.37 M/mm3 (4.6-6.2); White Blood Count 10.7 K/mm3 (4.4-11.0)
--- NOTE | 2023-03-21 07:33 | PCM.PN.HOSP ---
Reason for Visit Reason for Visit: Nausea/Vomiting/diarrhea Subjective Subjective Mr. Gardiner is a 67-year-old white male who presented to the emergency department at [facility] with a several day history of loose stools with the onset of intractable nausea and vomiting that started today prior in the early afternoon. He had concomitant chills but only following bouts of emesis. He denied any documented fever. He had no recent sick contacts or food changes. He has had ongoing diarrhea and outside hospital was noted to have significant SCARLETT with a creatinine of 4.03 (baseline 1.1-1.3). He will is electrolytes on his BMP were unremarkable. His CO2 was slightly low at 19 likely from ongoing nausea vomiting and diarrhea. Lipase was normal. Troponin was unremarkable. And his vital signs were as follows temperature was 36.5/heart rate 98/respiratory was 18/BP was 114/78 oxygen saturation was 94% on room air. Patient did have some abdominal cramping with the onset of his nausea and vomiting but it was not noted to be severe. Further electrolytes done here showed significant hypocalcemia and hypomagnesemia both of which are being replaced. Patient states he is feeling better. Tolerating clear liquids without any difficulty. No further nausea vomiting or diarrhea. We did discuss that his renal function is slowly improving however not near baseline yet and that he would probably require at least another 24 to 48 hours of admission as we would like to see is creatinine improved dramatically prior to discharge. Objective Data Objective Data Vital Signs: Vital Signs Temp Pulse Resp BP Pulse Ox O2 Del Method 98.7 F 104 H 18 144/74 H 97 Room Air 03/21/23 05:11 03/21/23 05:11 03/21/23 05:11 03/21/23 05:11 03/21/23 05:11 03/21/23 05:11 Oxygen Delivery Method Room Air Weight: 101.9 kg Body Mass Index (BMI) 30.4 Intake & Output: Intake and Output for Last 24 Hours 03/19/23 03/20/23 03/21/23 23:59 23:59 23:59 Intake Total 220 / 340 770 / 770 Balance 220 / 340 770 / 770 Lab / Micro Data 03/21/23 07:00 03/21/23 07:00 Labs: Laboratory Results - last 24 hr 03/20/23 20:31: WBC 13.7 H, RBC 4.82, Hgb 13.9, Hct 39.9 L, MCV 82.8, MCH 28.8, MCHC 34.8, RDW Std Deviation 40.9, RDW Coeff of Jorge 13.6, Plt Count 248, MPV 11.0, Immature Gran % (Auto) 0.400, Neut % (Auto) 88.7 H, Lymph % (Auto) 6.5 L, Douglas % (Auto) 4.2, Eos % (Auto) 0.1, Baso % (Auto) 0.1, Absolute Neuts (auto) 12.1 H, Absolute Lymphs (auto) 0.89, Nucleated RBC % 0, Sodium 137, Potassium 3.9, Chloride 102, Carbon Dioxide 15.0 L, Anion Gap 20 H, BUN 61 H, Creatinine 3.65 H, Estim Creat Clear Calc 21.85, Est GFR (MDRD) Af Amer 22 L, Est GFR (MDRD) Non-Af 18 L, BUN/Creatinine Ratio 16.7, Glucose 173 H, Calcium 6.0 L*, Magnesium 0.3 L*, Total Bilirubin 0.70, AST 28, ALT 59, Alkaline Phosphatase 101, Total Protein 8.0, Albumin 4.2, Globulin 3.8, Albumin/Globulin Ratio 1.1 03/20/23 21:05: POC Glucose 175 H 03/21/23 02:38: Magnesium 1.7 03/21/23 04:45: Urine Color Yellow, Urine Clarity Clear, Urine pH 5.0, Ur Specific [place] 1.020, Urine Protein 15 H, Urine Glucose (UA) Normal, Urine Ketones 5 H, Urine Occult Blood Negative, Urine Nitrite Negative, Urine Bilirubin Negative, Urine Urobilinogen Normal, Ur Leukocyte Esterase Negative, Urine RBC 0 SEEN, Urine WBC 0 SEEN, Ur Squamous Epith Cells 0 SEEN, Urine Bacteria RARE, Hyaline Casts 0-5 SEEN, Urine Mucus 0 SEEN 03/21/23 07:00: WBC 10.7, RBC 4.37 L, Hgb 12.9 L, Hct 36.3 L, MCV 83.1, MCH 29.5, MCHC 35.5, RDW Std Deviation 41.7, RDW Coeff of Jorge 13.7, Plt Count 222, MPV 10.0, Immature Gran % (Auto) 0.700, Neut % (Auto) 79.1 H, Lymph % (Auto) 9.6 L, Douglas % (Auto) 10.4 H, Eos % (Auto) 0.0, Baso % (Auto) 0.2, Absolute Neuts (auto) 8.5 H, Absolute Lymphs (auto) 1.03, Nucleated RBC % 0 Micro: Microbiology 03/20/23 21:12 Mucosa - Nose Coronavirus COVID-19 PCR - Final 03/20/23 21:12 Mucosa - Nasopharyngeal Respiratory Panel (PCR) - Final Physical Exam Const alert, oriented x3, no apparent distress and well nourished Constitutional Narrative: Obese, white male, lying in bed, watching television, appears comfortable and nontoxic, very pleasant HEENT head/scalp atraumatic and moist oral mucous membranes HEENT Narrative: Mallampati 3, no thrush Head and Scalp: normocephalic Resp normal respiratory effort, no retractions, no use of accessory muscles and clear to auscultation bilaterally Auscultation: Negative for rales, rhonchi or wheezes Cardio regular rate, regular rhythm, S1 normal heart sound, S2 normal heart sound, no murmurs, no rub, no gallops and no clicks GI normal to inspection, nondistended, normoactive bowel sounds, soft to palpation and non-tender Extremity no clubbing, cyanosis or edema Extremity Narrative: Pedal pulses are 2+ Neuro oriented x3, moves all extremities and no focal motor deficits Speech: speech normal Psych affect normal Psych Narrative: Very pleasant, interacts appropriately, eye contact is good Assessment & Plan Assessment/Plan (1) Acute gastroenteritis: (2) SCARLETT (acute kidney injury): (3) Hypocalcemia: (4) Hypomagnesemia: (5) Dehydration: PLAN: Plan Acute viral gastroenteritis -Seems to be improving -Enteric stool and C. difficile ordered but not yet collected as patient has not yet had a bowel movement since admission -Continue liquid diet and advance as tolerated -Continue IV fluids but transition to LR at 125 cc/h until patient eating well and renal function back to baseline or close to baseline -Continue antiemetics SCARLETT -Baseline serum creatinine is between 1 and 1.3 -Serum creatinine on presentation to outside facility was greater than 4 with recheck here at 3.65 after some hydration prior to admission -Continues to improve with serum creatinine trending down this morning -Continue IV fluids as noted above and 1 serum creatinine is close to baseline will discontinue IV fluids as long as patient is taking p.o. without any difficulty -Continue to hold losartan Hypomagnesemia -Resolved Hypocalcemia -Replacement in progress -Repeat pending after replacement and will give more if still low Chronic atrial fibrillation -Continue home metoprolol -Continue home apixaban History of HFpEF -Most recent EF was 55% -Patient is no longer on diuretics follows with cardiology HTN/HPL/CAD -History of CABG -Had cardiac catheterization 2021 which showed severe [place] coronary artery disease with patent saphenous vein bypass graft to the obtuse marginal branch and PDA with recommended maximizing medical therapy -Continue aspirin/statin and/Zetia metoprolol and restart losartan as able -As needed hydralazine may be needed especially since losartan is on hold GERD -Continue PPI -Discontinue IV and transition to oral BPH -Continue Cardura Tobacco abuse -Highly recommend cessation with his history of coronary disease -Nicotine patch as needed DVT prophylaxis -Continue Eliquis CODE STATUS Full code Charges/Coding Visit Charges Inpatient E&M: 70310 Subs Hosp L2
[2023-03-21] MEDS: Lactated Ringers 1,000 ML 125 ML IV ×2 (08:15→16:50)
[2023-03-21] MEDS: Aspirin 81 MG TAB.CHEW PO (08:16)
[2023-03-21] MEDS: APIXABAN 2.5 MG TABLET (WCH) PO ×2 (08:17→21:03)
[2023-03-21] MEDS: amLODIPine 10 MG Tablet PO (08:17)
[2023-03-21] MEDS: Doxazosin 1 MG Tablet 2 MG PO (08:17)
[2023-03-21] MEDS: Metoprolol(XL)Succ 50 MG Tablet PO (08:17)
[2023-03-21] MEDS: Ezetimibe 10 MG Tablet PO (08:18)
[2023-03-21] MEDS: Nystatin Powder 15gm Bottle 1 APPLIC TOPICAL (08:20)
[2023-03-21 08:22] LABS: ALB/GLOB Ratio 1.1 RATIO (0.9-2.4); AST(SGOT) 26 U/L (15-37); Alanine Aminotransfer ALT/SGPT 50 U/L (16-61); Albumin, Serum 3.7 g/dL (3.2-5.0); Alkaline Phosphatase 91 U/L (45-117); Anion Gap 15 (5-15); BUN 65 mg/dL (7-18); BUN/Creat Ratio 17.5 RATIO (10-20); Calcium,Total 6.2 mg/dL (8.5-10.1); Chloride 102 mmol/L (98-107); Creatinine, Serum 3.72 mg/dL (0.70-1.30); EST Glomerular Filtration Rate 17 mL/min (>60); Est Glom Filt Rate - Afr Amer 21 mL/min (>60); Estimated Creatinine Clearance 21.44 ml/min; Globulin 3.4 g/dL (2.2-4.2); Glucose 173 mg/dL (74-106); Potassium 3.4 mmol/L (3.5-5.1); Protein, Total 7.1 g/dL (6.4-8.2); Sodium Level 138 mmol/L (136-145)
[2023-03-21 09:05] LABS: Calcium,Total 6.3 mg/dL (8.5-10.1)
[2023-03-21] MEDS: Pantoprazole Sodium 40 MG Tablet PO (09:55)
[2023-03-21] MEDS: Ensure Clear 120 ML Liquid PO ×2 (14:28→16:49)
[2023-03-21] MEDS: Atorvastatin Calcium 40 MG Tablet PO (21:00)
[2023-03-22] MEDS: Lactated Ringers 1,000 ML 125 ML IV ×2 (00:55→09:25)
[2023-03-22 02:05] VITALS: BP 127/65; PULSE 68; RESP 16; TEMP 36.6; O2SAT 97
[2023-03-22 05:34] VITALS: BMI 30.6
[2023-03-22 06:10] VITALS: BP 121/50; PULSE 64; RESP 16; TEMP 36.6; O2SAT 96
[2023-03-22 06:41] LABS: ALB/GLOB Ratio 1.1 RATIO (0.9-2.4); AST(SGOT) 38 U/L (15-37); Alanine Aminotransfer ALT/SGPT 50 U/L (16-61); Albumin, Serum 3.1 g/dL (3.2-5.0); Alkaline Phosphatase 79 U/L (45-117); Anion Gap 9 (5-15); BUN 49 mg/dL (7-18); BUN/Creat Ratio 26.8 RATIO (10-20); Calcium,Total 6.7 mg/dL (8.5-10.1); Chloride 108 mmol/L (98-107); Creatinine, Serum 1.83 mg/dL (0.70-1.30); EST Glomerular Filtration Rate 40 mL/min (>60); Est Glom Filt Rate - Afr Amer 48 mL/min (>60); Estimated Creatinine Clearance 43.58 ml/min; Globulin 2.9 g/dL (2.2-4.2); Glucose 108 mg/dL (74-106); Magnesium 1.3 mg/dL (1.6-2.6); Phosphorus 4.1 mg/dL (2.5-4.9); Potassium 3.2 mmol/L (3.5-5.1); Sodium Level 142 mmol/L (136-145)
[2023-03-22] MEDS: Magnesium Sulfate 4gm/100mL 4 GM/100 ML IV.SOLN. IV (09:02)
[2023-03-22] MEDS: Potassium Chloride Oral Tablet 20 MEQ 60 MEQ PO (09:02)
[2023-03-22] MEDS: Aspirin 81 MG TAB.CHEW PO (09:03)
[2023-03-22] MEDS: APIXABAN 2.5 MG TABLET (WCH) PO (09:04)
[2023-03-22] MEDS: Pantoprazole Sodium 40 MG Tablet PO (09:04)
[2023-03-22] MEDS: Nystatin Powder 15gm Bottle 1 APPLIC TOPICAL (09:04)
[2023-03-22 09:25] VITALS: BP 148/68; PULSE 73
[2023-03-22] MEDS: Metoprolol(XL)Succ 50 MG Tablet PO (09:25)
[2023-03-22] MEDS: Ensure Clear 120 ML Liquid PO ×2 (09:25→12:42)
[2023-03-22] MEDS: Ezetimibe 10 MG Tablet PO (09:25)
[2023-03-22] MEDS: amLODIPine 10 MG Tablet PO (09:25)
[2023-03-22] MEDS: Doxazosin 1 MG Tablet 2 MG PO (09:29)
--- NOTE | 2023-03-22 10:13 | DS.PCM_ITS ---
Providers Date of Admission: 03/20/23 Date of Discharge: 03/22/23 Primary Care Physician: Yevgeniy Kimball, [employer] RECOVERY OPERATOR-C Reason For Visit: SCARLETT, GASTROENTERITIS Diagnosis Discharge Diagnosis (1) Acute gastroenteritis: Status: Acute Code(s): K52.9 - Noninfective gastroenteritis and colitis, unspecified (2) SCARLETT (acute kidney injury): Status: Acute Code(s): N17.9 - Acute kidney failure, unspecified (3) Hypocalcemia: Status: Acute Code(s): E83.51 - Hypocalcemia (4) Hypomagnesemia: Status: Acute Code(s): E83.42 - Hypomagnesemia (5) Dehydration: Status: Acute Code(s): E86.0 - Dehydration Medications at Discharge Home Medications aspirin 81 mg chewable tablet 81 mg PO BREAKFAST heart health #30 tabs 06/04/22 amlodipine 10 mg tablet 10 mg PO DAILY blood pressure #90 tabs 06/05/22 ezetimibe 10 mg tablet 10 mg PO DAILY cholesterol #90 tabs 06/05/22 pantoprazole 40 mg tablet,delayed release 40 mg PO DAILY GERD #90 tabs 06/05/22 metoprolol succinate 50 mg tablet,extended release 24 hr 50 mg PO DAILY DOSE DECRESED FROM 100 mg to 50 mg a day! #90 tabs 06/12/22 doxazosin 2 mg tablet (Cardura) 2 mg PO DAILY heart #30 tabs 07/27/22 atorvastatin 40 mg tablet 40 mg PO DAILY cholesterol #90 tabs 10/30/22 losartan 100 mg tablet 100 mg PO DAILY blood pressure #90 tabs 10/30/22 apixaban 5 mg tablet (Eliquis) 5 mg PO BID blood thinner #90 tabs 11/23/22 Hospital Course Operations None Procedures None Summary of Care Provided Minutes Spent on Discharge: 37 Hospital Course: Mr. Gardiner is a 67-year-old white male who presented to the emergency department at [facility] with a several day history of loose stools with the onset of intractable nausea and vomiting that started today prior in the early afternoon. He had concomitant chills but only following bouts of emesis. He denied any documented fever. He had no recent sick contacts or food changes. He had ongoing diarrhea and at the outside hospital was noted to have significant SCARLETT with a creatinine of 4.03 (baseline 1.1-1.3). He was found to be hypokalemic, hypomagnesemic, and hypocalcemic upon his arrival here and his CO2 was slightly low at 19 likely from ongoing nausea, vomiting, and diarrhea. Lipase was normal. Troponin was unremarkable. His vital signs on arrival here were as follows temperature was 36.5/heart rate 98/respiratory was 18/BP was 114/78 oxygen saturation was 94% on room air. Patient did have some abdominal cramping with the onset of his nausea and vomiting but it was not noted to be severe. His electrolytes were replaced with various boluses and oral potassium. On the day of discharge his calcium was still noted to be low and he was given further calcium bolus of calcium carbonate x1 g and oral potassium 60 mEq x 1 dose. I suspect he is depleted related to his excessive vomiting, decreased oral intake, and diarrhea. He was maintained on IV fluids with aggressive hydration and his low-dose and was held. We also dose reduced his Eliquis while his renal function was elevated to 2.5 mg daily. With aggressive hydration and holding nephrotoxic medications his renal function improved from 40.03 on presentation to outside facility to 1.83 on the day of discharge. Within 12 hours of admission his nausea vomiting was much improved and we started a clear liquid diet and advance as tolerated. Patient was able to tolerate regular food for 3 meals prior to discharge. He stated he was feeling much better and with the marked improvement in his renal function we felt he was safe for discharge. I have asked him to hold his losartan for another 24 hours and reinitiate this on 03/24/2023. I do suspect this was a viral gastroenteritis. We did order a C. difficile and enteric stool panel however his diarrhea had resolved and he had no further episodes since we admitted him in this facility. He will restart losartan as noted above on Wednesday. I have asked him to follow-up with his primary care physician and obtain a CMP and mag level within the next week to reassess his renal function and electrolytes. No chronic medication changes were made. Discharge diagnoses: Acute viral gastroenteritis SCARLETT-resolving Hypomagnesemia-resolved Hypocalcemia-resolving Hypokalemia-replaced Chronic atrial fibrillation History of HFpEF-compensated HTN HPL CAD GERD BPH Tobacco abuse Physical Exam Const alert, oriented x3, no apparent distress, no limitations and well nourished Constitutional Narrative: Obese, white male, lying in bed, watching television, appears comfortable and nontoxic, very pleasant General Appearance: cooperative, comfortable, well kempt and well developed Orientation / Consciousness: awake, oriented to person, oriented to place and oriented to time Exam Limitations: no limitations Nutritional Appearance: obese HEENT normocephalic, head/scalp atraumatic, hearing grossly normal bilaterally and moist oral mucous membranes HEENT Narrative: Dentition is fair for age, Mallampati 3, no thrush Eyes PERRL, EOMs intact bilaterally and conjunctivae normal Eyes Narrative: No scleral icterus Neck no lymphadenopathy, supple and no JVD Neck Narrative: Trachea midline, no thyroid enlargement, neck is short and thick Resp normal respiratory effort, no retractions, no use of accessory muscles and clear to auscultation bilaterally Auscultation: Negative for rales, rhonchi or wheezes Cardio regular rate, regular rhythm, S1 normal heart sound, S2 normal heart sound, no murmurs, no rub, no gallops and no clicks GI normal to inspection, nondistended, normoactive bowel sounds, soft to palpation and non-tender Extremity no clubbing, cyanosis or edema Extremity Narrative: Pedal pulses are 2+ Skin no rashes or lesions noted, no wounds, skin turgor normal and no jaundice Neuro oriented x3, CN's II-XII intact bilaterally, moves all extremities and no focal motor deficits Speech: speech normal Psych affect normal Psych Narrative: Very pleasant, interacts appropriately, eye contact is good Medical Records Data Medical Nutrition Assessment Dietitian: Malnutrition Criteria Met Start: 03/21/23 11:53 Freq: Status: Active Protocol: Document 03/21/23 11:53 (Rec: 03/21/23 11:53 [id number]) Nutrition Malnutrition Evidence of Malnutrition Exists Yes Malnutrition (moderate): Acute Illness/Injury Evidenced By Suboptimal Energy Intake ( Moderate),Weight Loss (Severe) Clinical Problem Acute Disease or Injury Related Malnutrition Etiology moderate related to gastroenteritis Signs/Symptoms as evidenced by <75% PO intake of estimated needs for 2 weeks and 15.3lbs (6.3%) weight loss in 3-4 weeks. Status Active Problem Recommendation Dietitian Recommendations/Changes ADAT to Low Fiber/Cardiac diet when medically able to manage medical conditions. Continue 120ml Ensure Clear TID with medpass to provide supplemental energy. Change to EPHP when diet advances. Weight / BMI Weight Weight: 102.5 kg Body Mass Index (BMI) 30.6 ABG / Lab / Microbiology Data 03/21/23 07:00 03/22/23 05:40 Laboratory: Laboratory Results - last 24 hr 03/22/23 05:40: Sodium 142, Potassium 3.2 L, Chloride 108 H, Carbon Dioxide 25.0, Anion Gap 9, BUN 49 H, Creatinine 1.83 H, Estim Creat Clear Calc 43.58, Est GFR (MDRD) Af Amer 48 L, Est GFR (MDRD) Non-Af 40 L, BUN/Creatinine Ratio 26.8 H, Glucose 108 H, Calcium 6.7 L, Phosphorus 4.1, Magnesium 1.3 L, Total Bilirubin 1.00, AST 38 H, ALT 50, Alkaline Phosphatase 79, Total Protein 6.0 L, Albumin 3.1 L, Globulin 2.9, Albumin/Globulin Ratio 1.1 Microbiology: Microbiology 03/20/23 21:12 Mucosa - Nose Coronavirus COVID-19 PCR - Final 03/20/23 21:12 Mucosa - Nasopharyngeal Respiratory Panel (PCR) - Final D/C Instructions Discharge Diet: Low fat / Low cholesterol Discharge Activity: Return to Normal Activity Return to work on: 03/23/23 Meaningful Use Info Meaningful Use Diagnoses (Choose all that apply): None applicable Discharge Plan Admission Admit Date/Time: 03/20/23 20:13 Primary Reason for Your Visit: Dehydration and SCARLETT 2/2 Gastroenteritis Attending Provider: Sherri Cuevas Primary Care Provider: Yevgeniy Kimball NP Consulting Providers: Lisandro Romero Instructions Additional Instructions / Restrictions: 1. Hold losartan and restart on 03/24/2023 2. Please follow-up with your primary care physician and have them order a complete metabolic profile and a magnesium level to be done within the next week to 2 weeks to recheck your kidney function and electrolytes Discharge Orders/Prescriptions Prescriptions: Continued doxazosin [Cardura] 2 mg tablet 2 mg PO DAILY Qty: 30 11RF aspirin 81 mg tablet,chewable 81 mg PO BREAKFAST Qty: 30 11RF amlodipine 10 mg tablet 10 mg PO DAILY Qty: 90 3RF ezetimibe 10 mg tablet 10 mg PO DAILY Qty: 90 3RF pantoprazole 40 mg tablet,delayed release (DR/EC) 40 mg PO DAILY Qty: 90 3RF metoprolol succinate 50 mg tablet extended release 24 hr 50 mg PO DAILY Qty: 90 3RF atorvastatin 40 mg tablet 40 mg PO DAILY Qty: 90 3RF Eliquis 5 mg tablet 5 mg PO BID Qty: 90 3RF Held losartan 100 mg tablet 100 mg PO DAILY Qty: 90 3RF Hold Instructions: Resume on 03/24/23. Discontinued hydrochlorothiazide 25 mg tablet 25 mg PO DAILY Qty: 30 11RF Referrals / Follow Up: Yevgeniy Kimball MONOMER RECOVERY OPERATOR, [employer] RECOVERY OPERATOR-C [Primary Care Provider] - Within 1 Week Disposition Disposition (needs filled in before D/C Order can be placed): Home, Self Care Charges/Coding Visit Charges Inpatient E&M: 09686 Disch Hosp >30min
--- NOTE | 2023-03-22 10:45 | CASEMGMT ---
RN?CM?FOREIGN BANKNOTE TELLER TRADER?CM?to room to meet with patient for initial transition planning/care coordination?assessment.?RN?CM?introduced self and role at [facility].? Pt voices understanding and consents to?assessment?at this time.? Pt resting in bed in no distress at this time.? Pt is A/O at this time and answers all questions appropriately.?? Care providers, pharmacy, and demographics verified/updated at this time. PCP: SAADIA Kimball Specialists:TAMY/Dr Stein Preferred Pharmacy: [facility] Retail Insurance: [facility] MCR Dual, VAIBHAV Prescription Benefit:?Yes Living Will/HPOA:? States does not have LW or HCPOA .? Interested in completing soon but does not want to talk with SW at this time to complete paperwork.? Educated patient that, if patient so chooses, can come back to [facility] and meet with a SW as an outpatient to complete health care advanced directives. Patient expresses understanding. He states he will want to list Sheila as his POA and then Carmen Shields as 1st alternative, but he does not have her contact info. He plans to get this info and complete AD as an OP. LNOK: Pt has 2 biological children that he is not close to. Pt was parental guardian of Sheila from the age of 24 hrs old until she turned 18 yrs old, whom he calls his daughter but she is not blood-related. Living Arrangements: Lives w/Sheila and her dtr in 2-story home w/basement and 3 steps to enter. [employer] and pt states he does not have to go to the basement. He denies difficulty w/the stairs to enter home. Independent w/ADL's, manages his own meds, and gets his own groceries. Sheila does the laundry and most of the cleaning. Transportation:?Pt states drives self and states no transportation concerns at this time.?Sheila also drives. One of Sheila's family members will take him home @ d/c. DME: ? Denies using any DME and denies needs.? HHC/SNF: No hx of either. Denies needs and no needs identified. Pt wishes to return home and states has no concerns with going home. PLAN:??Home Dorcas BSN?RN?CM
--- NOTE | 2023-03-22 11:15 | PHA.DC.MR.R ---
Pharmacy [facility] Reconciliation Pharmacy Service has performed discharge medication reconciliation for this patient. The patient's discharge medication list was reviewed for discrepancies and discrepancies were resolved. Medications at Discharge Home Medications aspirin 81 mg chewable tablet 81 mg PO BREAKFAST heart health #30 tabs 06/04/22 amlodipine 10 mg tablet 10 mg PO DAILY blood pressure #90 tabs 06/05/22 ezetimibe 10 mg tablet 10 mg PO DAILY cholesterol #90 tabs 06/05/22 pantoprazole 40 mg tablet,delayed release 40 mg PO DAILY GERD #90 tabs 06/05/22 metoprolol succinate 50 mg tablet,extended release 24 hr 50 mg PO DAILY DOSE DECRESED FROM 100 mg to 50 mg a day! #90 tabs 06/12/22 doxazosin 2 mg tablet (Cardura) 2 mg PO DAILY heart #30 tabs 07/27/22 atorvastatin 40 mg tablet 40 mg PO DAILY cholesterol #90 tabs 10/30/22 losartan 100 mg tablet 100 mg PO DAILY blood pressure #90 tabs 10/30/22 apixaban 5 mg tablet (Eliquis) 5 mg PO BID blood thinner #90 tabs 11/23/22
[2023-03-22 13:33] VITALS: BP 150/63; PULSE 76; RESP 16; O2SAT 95
== END 2023-03-22 13:47 | disposition home or self-care (01) | DRG 683 ==
LOC: MS3 20:19 → PCU 03-21 04:46
PROVIDERS: Family Medicine; Admitting Provider Family Medicine; PCP Nurse Practitioner Family; Visit Provider Internal Medicine
DX: N17.9 Acute kidney failure, unspecified (principal); I48.20 Chronic atrial fibrillation, unspecified; I50.32 Chronic diastolic (congestive) heart failure; E83.51 Hypocalcemia; I11.0 Hypertensive heart disease with heart failure; E86.0 Dehydration; A08.4 Viral intestinal infection, unspecified; E78.5 Hyperlipidemia, unspecified; F17.210 Nicotine dependence, cigarettes, uncomplicated; E83.42 Hypomagnesemia; I25.10 Atherosclerotic heart disease of native coronary artery without angina pectoris; K21.9 Gastro-esophageal reflux disease without esophagitis; E87.6 Hypokalemia; I25.2 Old myocardial infarction; N40.0 Benign prostatic hyperplasia without lower urinary tract symptoms; Z79.01 Long term (current) use of anticoagulants; Z79.82 Long term (current) use of aspirin; Z79.899 Other long term (current) drug therapy; Z95.5 Presence of coronary angioplasty implant and graft
CPT/HCPCS: 36415; 80053; 81001; 82310; 82962; 83735; 84100; 85025; 87633; 87635; 94668; 97802; 99406; J7030; J7120; A4216; J0612